=== PATIENT | male | born 1955 | race Hispanic/Latino ===

== ENCOUNTER 2016-10-07 09:05 | Day surgery (SDC) | payer OTHER ==
[2016-09-01 08:57] VITALS: BMI 41.5
[2016-10-07] MEDS ORDERED: Bupivacaine HCl 0.5% PF (10 ml) Inj ONE (11:20)
[2016-10-07] MEDS ORDERED: Ciprofloxacin 400mg/200ml D5W 400 MG/200 ML BAG IVPB ONE (11:20)
[2016-10-07] MEDS ORDERED: Lidocaine 1% Inj (20ml) ONE (11:21)
[2016-10-07] MEDS ORDERED: Midazolam 2 MG/2 ML VIAL ONE (11:53)
[2016-10-07] MEDS ORDERED: Propofol 10 mg/ml Inj (20 ML) ONE (11:53)
[2016-10-07] MEDS ORDERED: Lactated Ringer's 1,000 ML IV ONE (12:05)
--- NOTE | 2016-10-07 13:36 | PCM.SURG1 ---
Surgeon's Initial Post Op Note - Surgeon's Notes Surgeon: Dr. Farley Counselling Psychologist: Dr. Call PGY-1, Dr. Kirk PGY-2 Type of Anesthesia: IV Sedation, Local Anesthesia Administered By: Dr. Lowe/Compa Pre-Operative Diagnosis: painful hardware in left foot and ankle Operative Findings: see operative report. 4-0 prolene. 10cc 0.5% Marcaine plain. 19cc 1:1 mix 1% Lidocaine plain and 0.5% Marcaine plain Post-Operative Diagnosis: same as pre-op Operation Performed: removal of painful hardware from left foot and ankle Specimen/Specimens Removed: 2 screws removed Estimated Blood Loss: EBL {In ML}: 10 Blood Products Given: N/A Drains Used: No Drains Post-Op Condition: Good Date of Surgery/Procedure: 10/07/16 Time of Surgery/Procedure: 12:00
[2016-10-07] MEDS ORDERED: Oxycodone/Acetaminophen 5/325 mg Tab PO PRN ×2 (13:37)
[2016-10-07] MEDS ORDERED: HYDROmorphone 0.5 mg/0.5 ml ISec IVP PRN (13:40)
[2016-10-07 14:50] VITALS: BP 133/70; PULSE 65; RESP 18; TEMP 97.8; O2SAT 98
--- NOTE | 2016-10-07 15:45 | PCM.OP ---
Operative Report - Operative Report Date of Surgery/Procedure: 10/07/16 Time of Surgery/Procedure: 12:00 Surgeon: RASHAD LeungM Public Area Supervisor: Dr. Sheri Call PGY-1, Dr. Kady Kirk PGY-2 Anesthesia/Sedation: IV sedation + local Pre-Operative Diagnosis: painful hardware in left foot and ankle Post-Operative Diagnosis: painful hardware in left foot and ankle Indication for Surgery: The patient is a 61 year old male with the above diagnoses. The patient has exhausted all conservative treatment at this time and now requests surgical intervention. The patient signed the consent after careful explanation of risks, benefits, complication and alternatives for surgical procedure. No guarantees were given nor implied. NPO status was confirmed prior to taking the patient into the OR. Operative Findings: see operative report. I: 19cc 1:1 mix of 1% Lidocaine plain and 0.5% Marcaine plain pre-op block,. 10cc 0.5% Marcaine plain post-op block. M: two Biomet screws removed from patient Procedure/Operation Description: Procedure: left foot and ankle removal of painful hardware. . Indications: The patient is a 61 year old male with the above diagnoses. The patient has exhausted all conservative treatment at this time and now requests surgical intervention. The patient signed the consent after careful explanation of risks, benefits, complication and alternatives for surgical procedure. No guarantees were given nor implied. NPO status was confirmed prior to taking the patient into the OR. . Preparation: The patient was brought in to the operating room and placed on the operating room table in a supine position. Timeout was performed for identification of the correct patient and procedure. After induction of IV sedation, a local block was performed consisting of 19 mL of a 1:1 mixture of 1% lidocaine plain and 0.5% marcaine plain. The left foot was then prepped and draped in normal sterile manner. Attention was then directed to the left medial ankle where a prominent painful screw was present. An approximately 2.5 cm longitudinal incision was made with a number 15 blade. The incision was deepened through the subcutaneous tissues using sharp and blunt dissection all the way down to bone. Care was taken to identify and retract all vital neurovascular structures. The Biomet T- 1 double lead cortical screw was then visualized through the incision. Using a freer elevator, the soft tissue was dissected from the hardware and the screw was removed from the ankle. The wound was then flushed with copious amount of sterile normal saline solution. Attention was then directed to the proximal anterior aspect of the tibia. The C-arm was used to visualize and map the location of the painful hardware. An approximately 4 cm longitudinal incision was made with a number 15 blade. The incision was deepened through the subcutaneous tissues using sharp and blunt dissection all the way down to bone. Care was taken to identify and retract all vital neurovascular structures. The Biomet T-1 double lead cortical screw was then visualized through the incision. Using a screwdriver and a freer elevator, the screw was then removed from the ankle. The wound was then flushed with copious amount of sterile normal saline solution. The skin overlying both surgical incision sites was then reapproximated and coapted utilizing #4-0 prolene with simple sutures. A postoperative block of 10 cc of 0.5% marcaine plain was given in a local block type fashion around the two surgical incision sites. The incision sites were then dressed with adaptic, DSD and an RADHA bandage. The attending was present the entire case. Estimated Blood Loss: 10cc Blood Replaced: none Drains: none Complications: none Discharge & Condition: The patient tolerated the anesthesia and procedure well and was escorted to the recovery room with vital signs stable and neurovascular status intact to the left foot. This patient will be full weightbearing in a surgical shoe and follow up with Dr. Fritz.
== END 2016-10-07 15:15 | disposition home or self-care (01) ==
LOC: C.SDS 09:05
PROVIDERS: ATTEND Podiatrist Foot & Ankle Surgery
DX: T84.84XA Pain due to internal orthopedic prosthetic devices, implants and grafts, initial encounter (principal); M25.572 Pain in left ankle and joints of left foot; J45.909 Unspecified asthma, uncomplicated; G47.33 Obstructive sleep apnea (adult) (pediatric); M19.90 Unspecified osteoarthritis, unspecified site; I89.0 Lymphedema, not elsewhere classified; K29.70 Gastritis, unspecified, without bleeding; Z98.890 Other specified postprocedural states; Z90.49 Acquired absence of other specified parts of digestive tract; Z79.899 Other long term (current) drug therapy; Z88.3 Allergy status to other anti-infective agents; Z88.0 Allergy status to penicillin; Z88.7 Allergy status to serum and vaccine; Z91.018 Allergy to other foods; Y83.1 Surgical operation with implant of artificial internal device as the cause of abnormal reaction of the patient, or of later complication, without mention of misadventure at the time of the procedure

== ENCOUNTER 2016-10-12 06:43 | Day surgery (SDC) | payer OTHER ==
[2016-09-01 08:57] VITALS: BMI 41.5
[~2016-10-12 06:43] MED LIST: Ciprofloxacin 0.3% OPTH SOLN OD SCH; Cyclopentolate 1% Opth (2 ml) OD SCH; Flurbiprofen 0.03% Opht SOLN OD SCH; Lactated Ringer's 500 ML IV ONE; Phenylephrine 2.5% Opht Soln OD SCH; Tropicamide 1% Opht SOLUTION OD SCH
[2016-10-12] MEDS ORDERED: Carbachol 0.01% IO ONE (07:20)
[2016-10-12] MEDS ORDERED: Lactated Ringer's 500 ML IV ONE (07:49)
[2016-10-12] MEDS ORDERED: Midazolam 2 MG/2 ML VIAL ONE (07:55)
[2016-10-12] MEDS: Chondroitin/Hyaluronate Opth Syringe KIT (0.55 ml-0.5 ml) IO ONE ×3 (07:55→08:25)
[2016-10-12] MEDS ORDERED: Propofol 10 mg/ml Inj (20 ML) ONE (07:55)
[2016-10-12] MEDS: Lidocaine 2% Inj (20ml) ONE ×3 (07:56→08:10)
[2016-10-12] MEDS: Hyaluronidase Human, Recombi 150 U/ML VIAL ONE ×3 (07:56→08:10)
[2016-10-12] MEDS: Povidone Iodine Ophthalmic 5% Soln ONE ×3 (07:57→08:05)
[2016-10-12] MEDS: Tetracaine 0.5% Ophth (OR ONLY) ONE ×3 (07:58→08:05)
[2016-10-12] MEDS: Tobramycin/Dexamethasone OPHT OINT ONE ×5 (07:59→08:57)
[2016-10-12 10:05] VITALS: BP 126/52; PULSE 76; RESP 20; TEMP 97.7; O2SAT 95
--- NOTE | 2016-10-13 13:26 | OP ---
PROCEDURE DATE: 10/12/2016 PREOPERATIVE DIAGNOSIS: Visually significant cataract, right eye. POSTOPERATIVE DIAGNOSIS: Visually significant cataract, right eye. PROCEDURE: Cataract extraction with intraocular lens implant, right eye. LENS IMPLANTED: [id number], 23 diopter. TYPE OF ANESTHESIA: Monitored anesthesia care and retrobulbar injection. DESCRIPTION OF PROCEDURE: The patient was premedicated and brought to the operating room and placed on the operating room table in the supine position. Topical tetracaine was instilled. After adequate anesthesia, a retrobulbar injection with 2% Xylocaine with 0.75% Marcaine was given. The eye was then prepped and draped in the usual sterile ophthalmic fashion and a lid speculum was inserted and the microscope was positioned. A temporal paracentesis was created followed by injection of intracameral shugarcaine. Viscoat was then injected into the anterior chamber. The temporal biplanar clear corneal incision was then created, next a complete curvilinear capsulorrhexis was created with an Utrata forceps. Balanced salt solution, hydrodissection was then performed. The lens was phacoemulsified. Residual cortical material was removed by manual irrigation and aspiration. Viscoelastic was then injected into the capsular bag and intraocular lens model and power as noted, was injected into the capsular into plane and viscoelastic was then used removed using irrigation and aspiration. The wounds were hydrated and there was noted to be no leakage. The eyelid speculum was removed. Topical antibiotics and steroid drops and ointment were placed onto the eye. The eye was patched and shielded and the patient was wheeled to the recovery room in stable condition. Zuhair Caba MD
--- NOTE | 2016-10-13 15:08 | OP ---
DATE OF PROCEDURE: 10/12/2016 PROCEDURE: Cataract extraction with intraocular lens implant of the right eye. ANESTHESIA: Retrobulbar and monitored anesthesia care. PREOPERATIVE DIAGNOSIS: Visually significant cataract, right eye. POSTOPERATIVE DIAGNOSIS: Visually significant cataract, right eye. LENS IMPLANT: SN60WF *------*diopter. COMPLICATIONS: None. PROCEDURE IN DETAIL: Mr. Marsh was pre-medicated and brought to the operating room, and placed on the operating table in the supine position. Topical tetracaine was instilled. After adequate anesthesia, a retrobulbar injection of 2% Xylocaine and 0.75% Marcaine was given to the right eye. The eye was then prepped and draped in the usual sterile ophthalmic fashion. A lid speculum was inserted and microscope was positioned. A temporal paracentesis was created followed by injection of intracameral Shugarcaine. The scope was then inserted into the anterior chamber. A temporal biplanar clear corneal incision was then created next. A complete curvilinear capsulorrhexis was created with intraoperative forceps. Balanced salt solution and hydrodissection were then performed. The lens was phacoemulsified with residual cortical materials driven through the irrigation and aspiration. Viscoelastic was injected into the capsular bag and an intraocular lens, model and power, as noted was injected into the capsular bag and rotated into place. The viscoelastic was then removed using irrigation and aspiration. The wounds were hydrated. There was noticed to be no leakage. The lid speculum was removed. Topical antibiotics and sterile eyedrops were placed onto the eye. Antibiotics and sterile ointment were placed onto the eye, and the eye was patched and shielded. Mr. Marsh was wheeled to the recovery room in stable condition. Zuhair Caba MD
== END 2016-10-12 10:05 | disposition home or self-care (01) ==
LOC: C.SDS 06:43
PROVIDERS: ATTEND Ophthalmology
DX: H26.9 Unspecified cataract (principal)
CPT/HCPCS: 66984; J2250; J2704; J3010; J3470; J7120; V2632

== ENCOUNTER 2017-08-23 07:11 | Observation (INO) | payer OTHER ==
[2017-08-23 07:12] VITALS: BMI 41.5
[2017-08-23] MEDS ORDERED: Sodium Chloride 0.9% 1,000 ML IV ONE (07:35)
[2017-08-23] MEDS ORDERED: Sodium Chloride 0.9% 1,000 ML ONE (07:46)
[2017-08-23 07:51] LABS: BASO # 0.1 K/uL (0.0-0.2); BASO % 0.9 % (0.0-2.0); EOS # 0.2 K/uL (0.0-0.7); EOS % 2.6 % (0.0-4.0); HEMOGLOBIN 12.8 g/dL (12.0-18.0); LYMPH # 1.6 K/uL (1.0-4.3); LYMPH % 21.5 % (20.0-40.0); MEAN CELL VOLUME 84.5 fL (80.0-94.0); MEAN CORPUSCULAR HEMOGLOBIN 29.1 pg (27.0-31.0); MEAN CORPUSCULAR HGB CONC 34.4 g/dL (33.0-37.0); MEAN PLATELET VOLUME 8.1 fL (7.2-11.7); MONO # 0.5 K/uL (0.0-0.8); MONO % 6.8 % (0.0-10.0); NEUT % 68.2 % (50.0-75.0); NRBC % 0.1 % (0.0-2.0); RBC 4.41 Mil/uL (4.40-5.90); RED CELL DISTRIBUTION WIDTH 16.1 % (11.5-14.5); WHITE BLOOD COUNT 7.3 K/uL (4.8-10.8)
--- NOTE | 2017-08-23 08:00 | RAD ---
PROCEDURE: CHEST RADIOGRAPH, 1 VIEW HISTORY: SOB COMPARISON: 10/04/2016 FINDINGS: LUNGS: No consolidation. Mild pulmonary venous congestion slightly increased since prior exam PLEURA: No pneumothorax or pleural fluid seen. CARDIOVASCULAR: Cardiomegaly -similar OSSEOUS STRUCTURES: Mild bilateral shoulder arthrosis. VISUALIZED UPPER ABDOMEN: Normal. OTHER FINDINGS: Large body habitus IMPRESSION: Cardiomegaly. Mild pulmonary venous congestion -slightly increased since prior exam
--- NOTE | 2017-08-23 08:09 | CT ---
PROCEDURE: CT HEAD WITHOUT CONTRAST. HISTORY: dizziness COMPARISON: 07/24/2012 TECHNIQUE: Axial computed tomography images were obtained through the head/brain without intravenous contrast. Radiation dose: Total exam DLP = 929 mGy-cm. This CT exam was performed using one or more of the following dose reduction techniques: Automated exposure control, adjustment of the mA and/or kV according to patient size, and/or use of iterative reconstruction technique. FINDINGS: HEMORRHAGE: No intracranial hemorrhage. BRAIN: No mass effect or edema. There is asymmetrical prominence of the left CSF space over the left temporal lobe with mild ipsilateral ex vacuo changes of the left lateral ventricle. 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 No interval additional changes noted VENTRICLES: Unremarkable. No hydrocephalus. CALVARIUM: Unremarkable. PARANASAL SINUSES: Unremarkable as visualized. No significant inflammatory changes. MASTOID AIR CELLS: Unremarkable as visualized. No inflammatory changes. OTHER FINDINGS: Supraclinoid internal carotid artery to areal vascular calcifications renoted. IMPRESSION: No interval intracranial hemorrhage or mass effect. Left temporal lobe bold infarct encephalomalacia changes -similar to 2013
[2017-08-23 08:16] LABS: B-TYPE NATRIURETIC PEPTIDE 75.2 pg/mL (0-900)
[2017-08-23 08:19] LABS: ALB/GLOB RATIO 1.2 (1.0-2.1); ALBUMIN 3.7 g/dL (3.5-5.0); ALT/SGPT 26 U/L (21-72); AST/SGOT 27 U/L (17-59); BLOOD UREA NITROGEN 18 mg/dL (9-20); CALCIUM 9.1 mg/dl (8.6-10.4); GFR AFRICAN-AMERICAN > 60; GFR NON-AFRICAN AMERICAN > 60
--- NOTE | 2017-08-23 08:30 | C.PDOC ---
History Of Present Illness 61 y/o male presents to the ER complaining of a sudden onset of dizziness which occurred [employer]. Patient states that the dizziness is worse with movement. Patient denies having headache, CP, SOB, nausea, vomiting, and abdominal pain. Time Seen by Provider: 08/23/17 07:17 Chief Complaint (Nursing): Dizziness/Lightheaded History Per: Patient History/Exam Limitations: no limitations Onset/Duration Of Symptoms: Hrs Current Symptoms Are (Timing): Still Present Severity: Moderate Past Medical History Reviewed: Historical Data, Nursing Documentation, Vital Signs Vital Signs: Last Vital Signs Temp 97.7 F 08/23/17 07:16 Pulse 65 08/23/17 10:14 Resp 12 08/23/17 10:14 BP 123/66 08/23/17 10:14 Pulse Ox 97 08/23/17 10:14 - Medical History PMH: Arthritis, Asthma, Fractures (NASAL LEFT HAND/LEFT ANKLE), Gastritis, Sleep Apnea Denies: Chronic Kidney Disease Surgical History: Appendectomy - [facility] Procedures AMPUTATION STUMP RASHARD (11/20/12) ANKLE FUSION (05/02/14) CENTRAL VENOUS CATHETER PLACEMENT WITH GUIDANCE (10/23/12) INJECT ANTIBIOTIC (05/04/14) LOC EXC LES METATAR/TAR (11/20/12) MUSC/TEND LNG CHANGE NEC (05/02/14) OCCUPATIONAL THERAPY (05/04/14) PHYSICAL THERAPY NEC (05/04/14) RECREATIONAL THERAPY (05/04/14) REMOVE INT FIX DEVIC NEC (08/20/14) TENDON TRNSFR/TRANSPLANT (11/20/12) Family History: States: No Known Family Hx - Social History Hx Tobacco Use: No Hx Alcohol Use: Yes Hx Substance Use: No - Immunization History Hx Tetanus Toxoid Vaccination: No Hx Influenza Vaccination: Yes Hx Pneumococcal Vaccination: Yes Review Of Systems Except As Marked, All Systems Reviewed And Found Negative. Constitutional: Negative for: Fever, Chills Gastrointestinal: Negative for: Nausea, Vomiting, Abdominal Pain Neurological: Positive for: Dizziness. Negative for: Headache Physical Exam - Physical Exam Appears: Non-toxic, No Acute Distress Skin: Normal Color, Warm, Dry Head: Atraumatic, Normacephalic Eye(s): bilateral: Normal Inspection Nose: Normal Oral Mucosa: Moist Neck: Supple Chest: Symmetrical Cardiovascular: Rhythm Regular Respiratory: Normal Breath Sounds, No Rales, No Rhonchi, No Wheezing Gastrointestinal/Abdominal: Normal Exam, Soft, No Tenderness Neurological/Psych: Oriented x3, Normal Speech ED Course And Treatment - Laboratory Results Result Diagrams: 08/23/17 07:42 08/23/17 07:42 ECG: Interpreted By Me, Viewed By Me ECG Rhythm: Sinus Rhythm ECG Interpretation: Normal Interpretation Of ECG: NSR with normal intervals, normal axises, and no ST/ T wave abnormalities Rate From EC O2 Sat by Pulse Oximetry: 98 (RA) Pulse Ox Interpretation: Normal - Other Rad CXR X-Ray: Viewed By Me, Read By Radiologist Interpretation: PROCEDURE: CHEST RADIOGRAPH, 1 VIEW. HISTORY: SOB. COMPARISON: 10/04/2016. FINDINGS: LUNGS: No consolidation. Mild pulmonary venous congestion slightly increased since prior exam. PLEURA: No pneumothorax or pleural fluid seen. CARDIOVASCULAR: Cardiomegaly -similar. OSSEOUS STRUCTURES: Mild bilateral shoulder arthrosis. VISUALIZED UPPER ABDOMEN: Normal. OTHER FINDINGS: Large body habitus. IMPRESSION: Cardiomegaly. Mild pulmonary venous congestion -slightly increased since prior exam Medical Decision Making Medical Decision Making: Assessment: Dizziness/ Syncope Plan: --Labs --UA --CXR --CT - Head --Antivert PO --IV Fluids --Sudafed PO Disposition Discussed With Dr.: Dion Santana Doctor Will See Patient In The: Hospital Counseled Patient/Family Regarding: Studies Performed, Diagnosis - Disposition Disposition: HOSPITALIZED Disposition Time: 10:48 Condition: FAIR Forms: [facility] (Slovak) - Clinical Impression Clinical Impression: Dizziness, Near syncope - Scribe Statement The provider has reviewed the documentation as recorded by the Papa Orosco Provider Attestation: All medical record entries made by the Papa were at my direction and personally dictated by me. I have reviewed the chart and agree that the record accurately reflects my personal performance of the history, physical exam, medical decision making, and the department course for this patient. I have also personally directed, reviewed, and agree with the discharge instructions and disposition.
[2017-08-23 09:07] LABS: URINE BILIRUBIN NEGATIVE (NEGATIVE); URINE BLOOD NEGATIVE (NEGATIVE); URINE CLARITY Clear (Clear); URINE COLOR Straw (YELLOW); URINE GLUCOSE (UA) NORMAL (Normal); URINE LEUKOCYTE ESTERASE NEG Leu/uL (Negative); URINE PROTEIN NEGATIVE (NEGATIVE); URINE UROBILINOGEN NORMAL mg/dL (0.2-1.0)
--- NOTE | 2017-08-23 17:07 | CP.PCM.CON ---
History of Present Illness - History of Present Illness History of Present Illness: admitted with dizziness while at work, had upset stomach x 2days with diarrhea at home h/o asthma stable on singular, advair Review of Systems - Review of Systems All systems: reviewed and no additional remarkable complaints except - Gastrointestinal Gastrointestinal: Change in Bowel Habits - Neurological Neurological: Dizziness Past Patient History - Past Medical History & Family History Past Medical History?: Yes - Past Social History Smoking Status: Former Smoker - CARDIAC Hx Cardiac Disorders: No Hx Circulatory Problems: Yes (LYMPHADEMA LEFT LEG) - PULMONARY Hx Asthma: Yes Hx Sleep Apnea: Yes - NEUROLOGICAL Hx Neurological Disorder: No - HEENT Hx HEENT Problems: Yes Hx Cataracts: Yes - RENAL Hx Chronic Kidney Disease: No - ENDOCRINE/METABOLIC Hx Endocrine Disorders: No - HEMATOLOGICAL/ONCOLOGICAL Hx Blood Disorders: No - INTEGUMENTARY Hx Dermatological Problems: Yes (FOOT ULCER) - MUSCULOSKELETAL/RHEUMATOLOGICAL Hx Arthritis: Yes Hx Fractures: Yes (NASAL LEFT HAND/LEFT ANKLE) - GASTROINTESTINAL Hx Gastritis: Yes - GENITOURINARY/GYNECOLOGICAL Hx Genitourinary Disorders: No - PSYCHIATRIC Hx Substance Use: No - SURGICAL HISTORY Hx Appendectomy: Yes - ANESTHESIA Hx Anesthesia: Yes Hx Anesthesia Reactions: No Hx Malignant Hyperthermia: No Meds Allergies/Adverse Reactions: Allergies Allergy/AdvReac Type Severity Reaction Status Date / Time clindamycin Allergy Intermediate REDNESS Verified 06/22/16 15:45 coconut Allergy Intermediate SWELLING Verified 10/04/16 08:20 coconut oil Allergy Intermediate SWELLING Verified 06/22/16 15:46 penicillin G Allergy Intermediate RASH Verified 06/22/16 15:47 tetanus and diphtheria Allergy Intermediate RASH Verified 06/22/16 15:48 toxoids tetanus toxoid, adsorbed Allergy Intermediate RASH Verified 06/22/16 15:47 - Medications Medications: Current Medications Enoxaparin Sodium (Lovenox) 40 mg SC DAILY [facility] Sodium Chloride (Sodium Chloride 0.9%) 1,000 mls @ 100 mls/hr IV .Q10H ONE Stop: 08/23/17 17:34 Last Admin: 08/23/17 07:48 Dose: 100 mls/hr Pseudoephedrine HCl (Sudafed Tab) 30 mg PO Q6 CARMELINA Last Admin: 08/23/17 07:48 Dose: 30 mg Physical Exam - Constitutional Appears: No Acute Distress - Head Exam Head Exam: ATRAUMATIC, NORMOCEPHALIC - Eye Exam Eye Exam: Normal appearance Pupil Exam: PERRL - ENT Exam ENT Exam: Mucous Membranes Moist - Neck Exam Neck exam: Positive for: Normal Inspection - Respiratory Exam Respiratory Exam: Decreased Breath Sounds - Cardiovascular Exam Cardiovascular Exam: REGULAR RHYTHM, +S1, +S2 - GI/Abdominal Exam GI & Abdominal Exam: Normal Bowel Sounds, Soft - Rectal Exam Rectal Exam: Deferred - Neurological Exam Neurological exam: Alert, Oriented x3 - Psychiatric Exam Psychiatric exam: Normal Affect, Normal Mood - Skin Skin Exam: Intact Results - Vital Signs Recent Vital Signs: Last Vital Signs Temp 97.9 F 08/23/17 14:40 Pulse 68 08/23/17 14:40 Resp 84 H 08/23/17 14:40 BP 163/84 H 08/23/17 14:40 Pulse Ox 98 08/23/17 14:40 - Labs Result Diagrams: 08/23/17 07:42 08/23/17 07:42 Labs: Laboratory Results - last 24 hr 08/23/17 08/23/17 08/23/17 07:23 07:42 07:42 WBC 7.3 RBC 4.41 Hgb 12.8 Hct 37.3 MCV 84.5 MCH 29.1 MCHC 34.4 RDW 16.1 H Plt Count 238 MPV 8.1 Neut % (Auto) 68.2 Lymph % (Auto) 21.5 Taylor % (Auto) 6.8 Eos % (Auto) 2.6 Baso % (Auto) 0.9 Neut # (Auto) 5.0 Lymph # (Auto) 1.6 Taylor # (Auto) 0.5 Eos # (Auto) 0.2 Baso # (Auto) 0.1 Sodium 140 Potassium 4.1 Chloride 105 Carbon Dioxide 24 Anion Gap 15 BUN 18 Creatinine 0.7 L Est GFR ( Amer) > 60 Est GFR (Non-Af Amer) > 60 POC Glucose (mg/dL) 80 Random Glucose 111 H Calcium 9.1 Total Bilirubin 0.6 AST 27 ALT 26 Alkaline Phosphatase 113 Troponin I < 0.0120 NT-Pro-B Natriuret Pep 75.2 Total Protein 6.8 Albumin 3.7 Globulin 3.1 Albumin/Globulin Ratio 1.2 Urine Color Urine Clarity Urine pH Ur Specific [place] Urine Protein Urine Glucose (UA) Urine Ketones Urine Blood Urine Nitrate Urine Bilirubin Urine Urobilinogen Ur Leukocyte Esterase Urine RBC (Auto) 08/23/17 08:41 WBC RBC Hgb Hct MCV MCH MCHC RDW Plt Count MPV Neut % (Auto) Lymph % (Auto) Taylor % (Auto) Eos % (Auto) Baso % (Auto) Neut # (Auto) Lymph # (Auto) Taylor # (Auto) Eos # (Auto) Baso # (Auto) Sodium Potassium Chloride Carbon Dioxide Anion Gap BUN Creatinine Est GFR ( Amer) Est GFR (Non-Af Amer) POC Glucose (mg/dL) Random Glucose Calcium Total Bilirubin AST ALT Alkaline Phosphatase Troponin I NT-Pro-B Natriuret Pep Total Protein Albumin Globulin Albumin/Globulin Ratio Urine Color Straw Urine Clarity Clear Urine pH 7.0 Ur Specific [place] 1.008 Urine Protein Negative Urine Glucose (UA) Normal Urine Ketones Negative Urine Blood Negative Urine Nitrate Negative Urine Bilirubin Negative Urine Urobilinogen Normal Ur Leukocyte Esterase Neg Urine RBC (Auto) < 1 Assessment & Plan (1) Dizziness Status: Acute Comment: work up ongoing, ct head nothing acute, carotids pending (2) Asthma with COPD Status: Chronic Comment: advair 250, singular (3) S/P ankle fusion Status: Chronic
[2017-08-23 17:37] LABS: CK-MB 2.74 ng/mL (0.0-3.38)
[2017-08-23] MEDS ORDERED: Fluticasone-Salmeterol 250-50mcg Diskus INH SCH (20:00)
--- NOTE | 2017-08-23 20:47 | CP.PCM.HP ---
History of Present Illness - History of Present Illness History of Present Illness: Chief complaint: Feeling dizzy HPI: 61-year-old male with a history of bronchial asthma, chronic leg edema of the left leg, history of concussion in the past. Patient brought into the emergency room because he was not able to stand up and walk today while he was in the parking lot. He was also having symptoms of diarrhea for 3 days, and associated with 2 episodes of vomiting 2 days ago. Patient was not clear what attributed this. Yesterday he was not eating much, he was not drinking enough. He was continued to have a diarrheal episode, just watery stools up to 3 times. 1-2 episodes of vomiting. Today in the emergency room he was evaluated for dizziness, he did not lose any consciousness. But he felt like his knee giving away or he was standing up and trying to stand up. He was also feeling dizzy. In the emergency room he was also having some disorientation as per the patient' s most likely after the Antivert. But patient is now feeling much better after receiving IV fluids. He has no chest pain now. He denies any nausea vomiting headache or other systemic symptoms. No palpitation no dizziness Past medical history: History of bronchial asthma, gastroesophageal reflux disease, sleep apnea and obesity, chronic leg edema on the left side. Allergies multiple allergies including clindamycin coconut and penicillin Personal history he used to be a smoker in the past quit a few years ago. Socially drinks alcohol. Family history significant for heart disease and carotid. Surgical history multiple surgeries to the left leg. Review of system: Patient is having no headache, he denies any visual symptoms. Patient in the past is seen by neurologist many years ago for the concussion of the brain. He did not have any residual weakness. He denies any chest pain or shortness of breath, using CPAP for obstructive sleep apnea No abdominal pain, episodes of diarrhea, currently better. No recent antibiotic use Denies any vomiting now, but to 2 episodes of vomiting in the past noted. Patient's home medications reviewed On examination: Currently patient is sitting up, not in any distress. Chest good air entry Regular heart sound Nontender abdomen. 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 Assessment and recommendation: 61-year-old male with a history of chronic leg edema, history of bronchial asthma sinusitis, history of obstructive sleep apnea Admitted to the hospital with acute dizzy episode. Syncopal attack. Likely dehydration. But clinically improving with the fluid. Unlikely seizure activities, patient did not lose any consciousness, but mild disorientation noted. CT scan reveals old stroke like her encephalomalacia. We will get a carotid Doppler, echocardiogram, labs. Spoke to the patient and in detail. Patient in the past has been seen by neurologist, may be needing outpatient illogical evaluation. Will follow the patient Present on Admission - Present on Admission Any Indicators Present on Admission: No History of DVT/PE: No History of Uncontrolled Diabetes: No Urinary Catheter: No Decubitus Ulcer Present: No Past Patient History - Past Medical History & Family History Past Medical History?: Yes - Past Social History Smoking Status: Former Smoker - CARDIAC Hx Cardiac Disorders: No Hx Circulatory Problems: Yes (LYMPHADEMA LEFT LEG) - PULMONARY Hx Asthma: Yes Hx Sleep Apnea: Yes - NEUROLOGICAL Hx Neurological Disorder: No - HEENT Hx HEENT Problems: Yes Hx Cataracts: Yes - RENAL Hx Chronic Kidney Disease: No - ENDOCRINE/METABOLIC Hx Endocrine Disorders: No - HEMATOLOGICAL/ONCOLOGICAL Hx Blood Disorders: No - INTEGUMENTARY Hx Dermatological Problems: Yes (FOOT ULCER) - MUSCULOSKELETAL/RHEUMATOLOGICAL Hx Arthritis: Yes Hx Fractures: Yes (NASAL LEFT HAND/LEFT ANKLE) - GASTROINTESTINAL Hx Gastritis: Yes - GENITOURINARY/GYNECOLOGICAL Hx Genitourinary Disorders: No - PSYCHIATRIC Hx Substance Use: No - SURGICAL HISTORY Hx Appendectomy: Yes - ANESTHESIA Hx Anesthesia: Yes Hx Anesthesia Reactions: No Hx Malignant Hyperthermia: No Meds Allergies/Adverse Reactions: Allergies Allergy/AdvReac Type Severity Reaction Status Date / Time clindamycin Allergy Intermediate REDNESS Verified 06/22/16 15:45 coconut Allergy Intermediate SWELLING Verified 10/04/16 08:20 coconut oil Allergy Intermediate SWELLING Verified 06/22/16 15:46 penicillin G Allergy Intermediate RASH Verified 06/22/16 15:47 tetanus and diphtheria Allergy Intermediate RASH Verified 06/22/16 15:48 toxoids tetanus toxoid, adsorbed Allergy Intermediate RASH Verified 06/22/16 15:47 Results - Vital Signs Recent Vital Signs: Last Vital Signs Temp 97.9 F 08/23/17 14:40 Pulse 68 08/23/17 14:40 Resp 84 H 08/23/17 14:40 BP 163/84 H 08/23/17 14:40 Pulse Ox 98 08/23/17 14:40 - Labs Result Diagrams: 08/23/17 07:42 08/23/17 07:42 Labs: Laboratory Results - last 24 hr 08/23/17 08/23/17 08/23/17 07:23 07:42 07:42 WBC 7.3 RBC 4.41 Hgb 12.8 Hct 37.3 MCV 84.5 MCH 29.1 MCHC 34.4 RDW 16.1 H Plt Count 238 MPV 8.1 Neut % (Auto) 68.2 Lymph % (Auto) 21.5 Coke % (Auto) 6.8 Eos % (Auto) 2.6 Baso % (Auto) 0.9 Neut # (Auto) 5.0 Lymph # (Auto) 1.6 [place] # (Auto) 0.5 Eos # (Auto) 0.2 Baso # (Auto) 0.1 Sodium 140 Potassium 4.1 Chloride 105 Carbon Dioxide 24 Anion Gap 15 BUN 18 Creatinine 0.7 L Est GFR ( Amer) > 60 Est GFR (Non-Af Amer) > 60 POC Glucose (mg/dL) 80 Random Glucose 111 H Calcium 9.1 Total Bilirubin 0.6 AST 27 ALT 26 Alkaline Phosphatase 113 Total Creatine Kinase CK-MB (Mass) Troponin I < 0.0120 NT-Pro-B Natriuret Pep 75.2 Total Protein 6.8 Albumin 3.7 Globulin 3.1 Albumin/Globulin Ratio 1.2 Urine Color Urine Clarity Urine pH Ur Specific [place] Urine Protein Urine Glucose (UA) Urine Ketones Urine Blood Urine Nitrate Urine Bilirubin Urine Urobilinogen Ur Leukocyte Esterase Urine RBC (Auto) 08/23/17 08/23/17 08:41 17:07 WBC RBC Hgb Hct MCV MCH MCHC RDW Plt Count MPV Neut % (Auto) Lymph % (Auto) [place] % (Auto) Eos % (Auto) Baso % (Auto) Neut # (Auto) Lymph # (Auto) [place] # (Auto) Eos # (Auto) Baso # (Auto) Sodium Potassium Chloride Carbon Dioxide Anion Gap BUN Creatinine Est GFR ( Amer) Est GFR (Non-Af Amer) POC Glucose (mg/dL) Random Glucose Calcium Total Bilirubin AST ALT Alkaline Phosphatase Total Creatine Kinase 116 CK-MB (Mass) 2.74 Troponin I < 0.0120 NT-Pro-B Natriuret Pep Total Protein Albumin Globulin Albumin/Globulin Ratio Urine Color Straw Urine Clarity Clear Urine pH 7.0 Ur Specific [place] 1.008 Urine Protein Negative Urine Glucose (UA) Normal Urine Ketones Negative Urine Blood Negative Urine Nitrate Negative Urine Bilirubin Negative Urine Urobilinogen Normal Ur Leukocyte Esterase Neg Urine RBC (Auto) < 1
[2017-08-24 01:02] LABS: CK-MB 2.05 ng/mL (0.0-3.38); TROPONIN I 0.013 ng/mL (0.00-0.120)
[2017-08-24 01:18] VITALS: RESP 20
[2017-08-24 07:33] VITALS: BP 134/78; TEMP 98; O2SAT 96
[2017-08-24 08:26] LABS: BASO % 0.7 % (0.0-2.0); EOS # 0.2 K/uL (0.0-0.7); EOS % 3.4 % (0.0-4.0); HEMOGLOBIN 13.5 g/dL (12.0-18.0); LYMPH # 1.5 K/uL (1.0-4.3); LYMPH % 24.3 % (20.0-40.0); MEAN CELL VOLUME 84.4 fL (80.0-94.0); MEAN CORPUSCULAR HEMOGLOBIN 29.4 pg (27.0-31.0); MEAN CORPUSCULAR HGB CONC 34.9 g/dL (33.0-37.0); MEAN PLATELET VOLUME 7.7 fL (7.2-11.7); MONO # 0.4 K/uL (0.0-0.8); NEUT % 64.6 % (50.0-75.0); RBC 4.6 Mil/uL (4.40-5.90); RED CELL DISTRIBUTION WIDTH 16.4 % (11.5-14.5); WHITE BLOOD COUNT 6.2 K/uL (4.8-10.8)
[2017-08-24 08:51] VITALS: PULSE 72
[2017-08-24 08:58] LABS: ALB/GLOB RATIO 1.1 (1.0-2.1); ALBUMIN 3.8 g/dL (3.5-5.0); ALT/SGPT 26 U/L (21-72); AST/SGOT 23 U/L (17-59); BLOOD UREA NITROGEN 17 mg/dL (9-20); CALCIUM 9.1 mg/dl (8.6-10.4); GFR AFRICAN-AMERICAN > 60; GFR NON-AFRICAN AMERICAN > 60; HDL CHOLESTEROL 35 mg/dL (30-70)
[2017-08-24 09:08] LABS: LDL CHOLESTEROL 86 mg/dL (0-129)
[2017-08-24] MEDS ORDERED: Enoxaparin 40 mg Syringe SC SCH (10:00)
--- NOTE | 2017-08-24 15:50 | VASCLAB ---
PROCEDURE: HISTORY: syncope COMPARISON: None available. TECHNIQUE: Grayscale and duplex Doppler evaluation of the cervical carotid and vertebral arteries were performed. The common carotid, carotid bifurcations and cervical Internal Carotid Artery (ICA) and proximal External Carotid Artery (ECA) were evaluated. The vertebral arteries were evaluated for gross patency and flow direction. Report prepared by FLAVIO Aguiar FINDINGS: RIGHT CAROTID ARTERIES: 1. Common Carotid Artery: No significant focal plaque formation of the right common carotid artery. Maximum Peak Systolic velocity: 102 cm/sec: End-diastolic velocity 21 cm/sec. 2. Carotid Bifurcation: plaque formation. Maximum Peak Systolic velocity: 63 cm/sec: End-diastolic velocity 17 cm/sec. 3. Internal Carotid Artery: Plaque description: 3.1. Proximal Segment: Peak systolic velocity 98 cm/sec: End-diastolic velocity 25 cm/sec - % stenosis 0-15% 3.2. Middle Segment: Peak systolic velocity 96 cm/sec: End-diastolic velocity 33 cm/sec - % stenosis 0-15% 3.3. Distal Segment: Peak systolic velocity 82 cm/sec: End-diastolic velocity 31 cm/sec - % stenosis 0-15% 4. External Carotid Artery: No significant focal plaque formation. Peak systolic velocity 139 cm/sec 5. ICA/CCA Ratio: 1.0 LEFT CAROTID ARTERIES: 1. Common Carotid Artery: No significant focal plaque formation of the left common carotid artery. Maximum Peak Systolic velocity: 107 cm/sec: End-diastolic velocity 21 cm/sec. 2. Carotid Bifurcation: plaque formation. Maximum Peak Systolic velocity: 79 cm/sec: End-diastolic velocity 16 cm/sec. 3. Internal Carotid Artery: Plaque description: 3.1. Proximal Segment: Peak systolic velocity 71 cm/sec: End-diastolic velocity 24 cm/sec - % stenosis 0-15% 3.2. Middle Segment: Peak systolic velocity 61 cm/sec: End-diastolic velocity 16 cm/sec - % stenosis 0-15% 3.3. Distal Segment: Peak systolic velocity 60 cm/sec: End-diastolic velocity 18 cm/sec - % stenosis 0-15% 4. External Carotid Artery: No significant focal plaque formation. Peak systolic velocity 125 cm/sec 5. ICA/CCA Ratio: 0.7 VERTEBRAL ARTERIES: 1. Right Vertebral Artery: The right vertebral artery flow direction is antegrade. 2. Left Vertebral Artery: The left vertebral artery flow direction is antegrade. OTHER FINDINGS: 1. Right Brachial Blood pressure: 140 mmHg. 2. Left Brachial Blood pressure: 135 mmHg. IMPRESSION: RIGHT: Duplex scan does not suggest hemodynamically significant stenosis of the right extracranial carotid arteries. LEFT: Duplex scan does not suggest hemodynamically significant stenosis of the left extracranial carotid arteries.
--- NOTE | 2017-08-24 23:07 | CP.PCM.DIS ---
Provider - Provider Date of Admission: 08/23/17 10:48 Attending physician: Dion Santana MD Time Spent in preparation of Discharge (in minutes): 45 Hospital Course - Lab Results Lab Results: Most Recent Lab Values WBC 6.2 K/uL (4.8-10.8) 08/24/17 08:22 RBC 4.60 Mil/uL (4.40-5.90) 08/24/17 08:22 Hgb 13.5 g/dL (12.0-18.0) 08/24/17 08:22 Hct 38.8 % (35.0-51.0) 08/24/17 08:22 MCV 84.4 fL (80.0-94.0) 08/24/17 08:22 MCH 29.4 pg (27.0-31.0) 08/24/17 08:22 MCHC 34.9 g/dL (33.0-37.0) 08/24/17 08:22 RDW 16.4 % (11.5-14.5) H 08/24/17 08:22 Plt Count 254 K/uL (130-400) 08/24/17 08:22 MPV 7.7 fL (7.2-11.7) 08/24/17 08:22 Neut % (Auto) 64.6 % (50.0-75.0) 08/24/17 08:22 Lymph % (Auto) 24.3 % (20.0-40.0) 08/24/17 08:22 [place] % (Auto) 7.0 % (0.0-10.0) 08/24/17 08:22 Eos % (Auto) 3.4 % (0.0-4.0) 08/24/17 08:22 Baso % (Auto) 0.7 % (0.0-2.0) 08/24/17 08:22 Neut # (Auto) 4.0 K/uL (1.8-7.0) 08/24/17 08:22 Lymph # (Auto) 1.5 K/uL (1.0-4.3) 08/24/17 08:22 [place] # (Auto) 0.4 K/uL (0.0-0.8) 08/24/17 08:22 Eos # (Auto) 0.2 K/uL (0.0-0.7) 08/24/17 08:22 Baso # (Auto) 0.0 K/uL (0.0-0.2) 08/24/17 08:22 Sodium 141 mmol/L (132-148) 08/24/17 08:22 Potassium 4.4 mmol/L (3.6-5.2) 08/24/17 08:22 Chloride 107 mmol/L (98-107) 08/24/17 08:22 Carbon Dioxide 25 mmol/L (22-30) 08/24/17 08:22 Anion Gap 13 (10-20) 08/24/17 08:22 BUN 17 mg/dL (9-20) 08/24/17 08:22 Creatinine 0.7 mg/dL (0.8-1.5) L 08/24/17 08:22 Est GFR ( Amer) > 60 08/24/17 08:22 Est GFR (Non-Af Amer) > 60 08/24/17 08:22 POC Glucose (mg/dL) 80 mg/dL (65-110) 08/23/17 07:23 Random Glucose 105 mg/dL (75-110) 08/24/17 08:22 Hemoglobin A1c 5.8 % (4.2-6.5) 08/24/17 08:22 Calcium 9.1 mg/dl (8.6-10.4) 08/24/17 08:22 Total Bilirubin 0.8 mg/dL (0.2-1.3) 08/24/17 08:22 AST 23 U/L (17-59) 08/24/17 08:22 ALT 26 U/L (21-72) 08/24/17 08:22 Alkaline Phosphatase 110 U/L (38-126) 08/24/17 08:22 Total Creatine Kinase 70 U/L (55-170) 08/24/17 00:28 CK-MB (Mass) 2.05 ng/mL (0.0-3.38) 08/24/17 00:28 Troponin I 0.0130 ng/mL (0.00-0.120) 08/24/17 00:28 NT-Pro-B Natriuret Pep 75.2 pg/mL (0-900) 08/23/17 07:42 Total Protein 7.2 g/dL (6.3-8.3) 08/24/17 08:22 Albumin 3.8 g/dL (3.5-5.0) 08/24/17 08:22 Globulin 3.4 gm/dL (2.2-3.9) 08/24/17 08:22 Albumin/Globulin Ratio 1.1 (1.0-2.1) 08/24/17 08:22 Triglycerides 94 mg/dL (0-149) D 08/24/17 08:22 Cholesterol 145 mg/dL (0-199) 08/24/17 08:22 LDL Cholesterol Direct 86 mg/dL (0-129) 08/24/17 08:22 HDL Cholesterol 35 mg/dL (30-70) 08/24/17 08:22 Urine Color Straw (YELLOW) 08/23/17 08:41 Urine Clarity Clear (Clear) 08/23/17 08:41 Urine pH 7.0 (5.0-8.0) 08/23/17 08:41 Ur Specific [place] 1.008 (1.003-1.030) 08/23/17 08:41 Urine Protein Negative mg/dL (NEGATIVE) 08/23/17 08:41 Urine Glucose (UA) Normal mg/dL (Normal) 08/23/17 08:41 Urine Ketones Negative mg/dL (NEGATIVE) 08/23/17 08:41 Urine Blood Negative (NEGATIVE) 08/23/17 08:41 Urine Nitrate Negative (NEGATIVE) 08/23/17 08:41 Urine Bilirubin Negative (NEGATIVE) 08/23/17 08:41 Urine Urobilinogen Normal mg/dL (0.2-1.0) 08/23/17 08:41 Ur Leukocyte Esterase Neg Alicia/uL (Negative) 08/23/17 08:41 Urine RBC (Auto) < 1 /hpf (0-3) 08/23/17 08:41 - Hospital Course Hospital Course: Chief complaint: Feeling dizzy HPI: 61-year-old male with a history of bronchial asthma, chronic leg edema of the left leg, history of concussion in the past. Patient brought into the emergency room because he was not able to stand up and walk today while he was in the parking lot. He was also having symptoms of diarrhea for 3 days, and associated with 2 episodes of vomiting 2 days ago. Patient was not clear what attributed this. Yesterday he was not eating much, he was not drinking enough. He was continued to have a diarrheal episode, just watery stools up to 3 times. 1-2 episodes of vomiting. Today in the emergency room he was evaluated for dizziness, he did not lose any consciousness. But he felt like his knee giving away or he was standing up and trying to stand up. He was also feeling dizzy. In the emergency room he was also having some disorientation as per the patient' s most likely after the Antivert. But patient is now feeling much better after receiving IV fluids. He has no chest pain now. He denies any nausea vomiting headache or other systemic symptoms. No palpitation no dizziness Past medical history: History of bronchial asthma, gastroesophageal reflux disease, sleep apnea and obesity, chronic leg edema on the left side. Allergies multiple allergies including clindamycin coconut and penicillin Personal history he used to be a smoker in the past quit a few years ago. Socially drinks alcohol. Family history significant for heart disease and carotid. Surgical history multiple surgeries to the left leg. Review of system: Patient is having no headache, he denies any visual symptoms. Patient in the past is seen by neurologist many years ago for the concussion of the brain. He did not have any residual weakness. He denies any chest pain or shortness of breath, using CPAP for obstructive sleep apnea No abdominal pain, episodes of diarrhea, currently better. No recent antibiotic use Denies any vomiting now, but to 2 episodes of vomiting in the past noted. Patient's home medications reviewed On examination: Currently patient is sitting up, not in any distress. Chest good air entry Regular heart sound Nontender abdomen. 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 Assessment and recommendation: 61-year-old male with a history of chronic leg edema, history of bronchial asthma sinusitis, history of obstructive sleep apnea Admitted to the hospital with acute dizzy episode. Syncopal attack. Likely dehydration. But clinically improving with the fluid. Unlikely seizure activities, patient did not lose any consciousness, but mild disorientation noted. CT scan reveals old stroke like her encephalomalacia. We will get a carotid Doppler, echocardiogram, labs. Spoke to the patient and in detail. Patient in the past has been seen by neurologist, may be needing outpatient illogical evaluation. Will follow the patient hospital course: pt admitted to tele closely monitored pt felt well no episode of dizziness labs normal tele normal sinus stable to discharge pt will be dced home f/u as op f/u with neuro continue home meds diagnosis acute dizziness dehydration food poison asthma Discharge Exam - Head Exam Head Exam: ATRAUMATIC, NORMOCEPHALIC Discharge Plan - Follow Up Plan Condition: FAIR Disposition: HOME/ ROUTINE Instructions: Chronic Obstructive Pulmonary Disease (COPD), Including Emphysema , Asthma, Adult (DC), Dizziness, Nonvertigo, (DC), Near Fainting (DC) Additional Instructions: Discharge home today Follow up with primary MD , return to ED if symptoms return or worsen. Referrals: Tyrone Navarro MD [Staff Provider] -
== END 2017-08-24 15:20 | disposition home or self-care (01) ==
LOC: C.ER 07:11 → C.9E 10:48 → C.5S 13:54
PROVIDERS: ADMIT Internal Medicine; ATTEND Internal Medicine
DX: R42 Dizziness and giddiness (principal); E86.0 Dehydration; G47.33 Obstructive sleep apnea (adult) (pediatric); I65.29 Occlusion and stenosis of unspecified carotid artery; J45.909 Unspecified asthma, uncomplicated; Z87.891 Personal history of nicotine dependence; Z88.0 Allergy status to penicillin
CPT/HCPCS: 36415; 70450; 71045; 80053; 80061; 81001; 82948; 83036; 83880; 84484; 85025; 93306; 93880; 94660; 99285; G0378; J7030

== ENCOUNTER 2018-01-27 14:15 | Inpatient (IN) | payer OTHER ==
[2018-01-27 14:15] VITALS: BMI 41.5
[2018-01-27 15:24] LABS: BASO # 0.1 K/uL (0.0-0.2); BASO % 0.7 % (0.0-2.0); EOS # 0.5 K/uL (0.0-0.7); EOS % 5.1 % (0.0-4.0); HEMOGLOBIN 12.3 g/dL (12.0-18.0); LYMPH # 1.5 K/uL (1.0-4.3); LYMPH % 17.2 % (20.0-40.0); MEAN CORPUSCULAR HEMOGLOBIN 28.1 pg (27.0-31.0); MEAN CORPUSCULAR HGB CONC 33.5 g/dL (33.0-37.0); MEAN PLATELET VOLUME 7.7 fL (7.2-11.7); MONO # 0.8 K/uL (0.0-0.8); MONO % 8.4 % (0.0-10.0); NEUT # 6.1 K/uL (1.8-7.0); NEUT % 68.6 % (50.0-75.0); RBC 4.37 Mil/uL (4.40-5.90); RED CELL DISTRIBUTION WIDTH 15.2 % (11.5-14.5); WHITE BLOOD COUNT 8.9 K/uL (4.8-10.8)
[2018-01-27 15:38] LABS: ALB/GLOB RATIO 1.2 (1.0-2.1); ALBUMIN 3.8 g/dL (3.5-5.0); BLOOD UREA NITROGEN 15 mg/dL (9-20); CALCIUM 8.5 mg/dl (8.6-10.4); GFR NON-AFRICAN AMERICAN > 60
[2018-01-27 15:48] LABS: ALT/SGPT 20 U/L (21-72); AST/SGOT 22 U/L (17-59)
[2018-01-27] MEDS ORDERED: Vancomycin 1 GM 1 GM/250 ML BAG IVPB ONE (16:00)
--- NOTE | 2018-01-27 16:03 | RAD ---
Date of service: 01/27/2018 PROCEDURE: Left Foot Radiographs. HISTORY: ulcer COMPARISON: Left foot radiographs dated 10/16/2014.. FINDINGS: Prior 5th digit amputation. Multiple chronic changes including disorganization and destruction involving the tarsals, talus, calcaneus, tibia and fibula. Postsurgical changes appears similar. Lucency around the hardware may be related to loosening as result of destructive changes. Diffuse soft tissue swelling. 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 Superimposed osteomyelitis cannot be excluded. If there is concern for osteomyelitis, nuclear medicine three-phase bone scan and/or contrast-enhanced MRI can be obtained for further evaluation as clinically warranted.
--- NOTE | 2018-01-27 16:08 | C.PDOC ---
History Of Present Illness 62 y/o male presents to the ER complaining of left foot swelling. Patient states that he has blister to the left 4th toe. 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 He spoke to who recommended him to visit the ER. Denies having fever, chills, and other symptoms at this time. Time Seen by Provider: 01/27/18 14:28 Chief Complaint (Nursing): Abnormal Skin Integrity Past Medical History Vital Signs: Last Vital Signs Temp 98.0 F 01/27/18 14:21 Pulse 74 01/27/18 14:21 Resp 20 01/27/18 14:21 BP 111/71 01/27/18 14:21 Pulse Ox 98 01/27/18 14:21 - Medical History PMH: Arthritis, Asthma, Fractures (NASAL LEFT HAND/LEFT ANKLE), Gastritis, Sleep Apnea Denies: Chronic Kidney Disease Surgical History: Appendectomy - [employer] Procedures AMPUTATION STUMP RASHARD (11/20/12) ANKLE FUSION (05/02/14) CENTRAL VENOUS CATHETER PLACEMENT WITH GUIDANCE (10/23/12) INJECT ANTIBIOTIC (05/04/14) LOC EXC LES METATAR/TAR (11/20/12) MUSC/TEND LNG CHANGE NEC (05/02/14) OCCUPATIONAL THERAPY (05/04/14) PHYSICAL THERAPY NEC (05/04/14) RECREATIONAL THERAPY (05/04/14) REMOVE INT FIX DEVIC NEC (08/20/14) TENDON TRNSFR/TRANSPLANT (11/20/12) - Social History Hx Tobacco Use: No Hx Alcohol Use: Yes Hx Substance Use: No - Immunization History Hx Tetanus Toxoid Vaccination: No Hx Influenza Vaccination: Yes Hx Pneumococcal Vaccination: Yes ED Course And Treatment - Laboratory Results Result Diagrams: 01/27/18 15:15 01/27/18 15:15 O2 Sat by Pulse Oximetry: 98 Disposition Discussed With : Celi Werner Counseled Patient/Family Regarding: Studies Performed, Diagnosis - Disposition Disposition: HOSPITALIZED Disposition Time: 16:08 Forms: [employer] (Chilean) - Clinical Impression Clinical Impression: Skin ulcer, Cellulitis
[2018-01-27 16:09] LABS: VENOUS BLOOD GAS BASE EXCESS 0.8 mmol/L (0.0-2.0); VENOUS BLOOD GAS PCO2 49 mmHg (40-60); VENOUS BLOOD GAS PO2 21 mm/Hg (30-55); VENOUS BLOOD PH 7.35 (7.32-7.43)
--- NOTE | 2018-01-27 16:12 | C.PDOC ---
History Of Present Illness 62 y/o male presents to the ER complaining of left foot swelling. Patient states that he has blister to the left 4th toe. 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 He spoke to who recommended him to visit the ER. Denies having fever, chills, and other symptoms at this time. Time Seen by Provider: 01/27/18 14:28 Chief Complaint (Nursing): Abnormal Skin Integrity History Per: Patient History/Exam Limitations: no limitations Onset/Duration Of Symptoms: Days Current Symptoms Are (Timing): Still Present Severity: Moderate Past Medical History Reviewed: Historical Data, Nursing Documentation, Vital Signs Vital Signs: Last Vital Signs Temp 98.0 F 01/27/18 14:21 Pulse 74 01/27/18 14:21 Resp 20 01/27/18 14:21 BP 111/71 01/27/18 14:21 Pulse Ox 98 01/27/18 16:08 - Medical History PMH: Arthritis, Asthma, Fractures (NASAL LEFT HAND/LEFT ANKLE), Gastritis, Sleep Apnea Denies: Chronic Kidney Disease Surgical History: Appendectomy - [facility] Procedures AMPUTATION STUMP RASHARD (11/20/12) ANKLE FUSION (05/02/14) CENTRAL VENOUS CATHETER PLACEMENT WITH GUIDANCE (10/23/12) INJECT ANTIBIOTIC (05/04/14) LOC EXC LES METATAR/TAR (11/20/12) MUSC/TEND LNG CHANGE NEC (05/02/14) OCCUPATIONAL THERAPY (05/04/14) PHYSICAL THERAPY NEC (05/04/14) RECREATIONAL THERAPY (05/04/14) REMOVE INT FIX DEVIC NEC (08/20/14) TENDON TRNSFR/TRANSPLANT (11/20/12) Family History: States: No Known Family Hx - Social History Hx Tobacco Use: No Hx Alcohol Use: Yes Hx Substance Use: No - Immunization History Hx Tetanus Toxoid Vaccination: No Hx Influenza Vaccination: Yes Hx Pneumococcal Vaccination: Yes Review Of Systems Except As Marked, All Systems Reviewed And Found Negative. Constitutional: Negative for: Fever, Chills Musculoskeletal: Positive for: Foot Pain Physical Exam - Physical Exam Appears: Non-toxic, No Acute Distress Skin: Normal Color, Warm, Dry, Other (ruptured blister formation to left 4th toe, callus to plantar surface with pustular drainage) Head: Atraumatic, Normacephalic Eye(s): bilateral: Normal Inspection Nose: Normal Oral Mucosa: Moist Neck: Supple Chest: Symmetrical Cardiovascular: Rhythm Regular Respiratory: Normal Breath Sounds, No Rales, No Rhonchi, No Wheezing Gastrointestinal/Abdominal: Normal Exam, Soft, No Tenderness, No Guarding, No Rebound Extremity: Normal ROM, No Tenderness, Swelling (swelling to left foot) Neurological/Psych: Oriented x3, Normal Speech ED Course And Treatment - Laboratory Results Result Diagrams: 01/27/18 15:15 01/27/18 15:15 ECG: Interpreted By Me, Viewed By Me ECG Rhythm: Sinus Rhythm Interpretation Of ECG: NSR with normal intervals, normal axises, and no ST/ T wave changes Rate From EC O2 Sat by Pulse Oximetry: 98 (RA) Pulse Ox Interpretation: Normal - Other Rad X-Ray-Left Foot X-Ray: Viewed By Me, Read By Radiologist Interpretation: Date of service: 01/27/2018. PROCEDURE: Left Foot Radiographs. HISTORY: ulcer. COMPARISON: Left foot radiographs dated 10/16/2014.. FINDINGS: Prior 5th digit amputation. Multiple chronic changes including disorganization and destruction involving the tarsals, talus, calcaneus, tibia and fibula. Postsurgical changes appears similar. Lucency around the hardware may be related to loosening as result of destructive changes. Diffuse soft tissue swelling. 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 Superimposed osteomyelitis cannot be excluded. If there is concern for osteomyelitis, nuclear medicine three-phase bone scan and/or contrast-enhanced MRI can be obtained for further evaluation as clinically warranted. Medical Decision Making Medical Decision Making: Assessment: Skin Ulcer, Cellulitis Plan: --Labs --X-Ray-Left Foot Updates: 15:36 Podiatry resident evaluated patient. She recommended that paytoient be treated with IV abx. She also recommended for patient to be admitted and to have DARSHAN Cagle, on consult. Disposition Discussed With : Clei Werner Doctor Will See Patient In The: Hospital Counseled Patient/Family Regarding: Studies Performed, Diagnosis - Disposition Disposition: HOSPITALIZED Disposition Time: 16:08 Condition: FAIR - Clinical Impression Clinical Impression: Skin ulcer, Cellulitis - Scribe Statement The provider has reviewed the documentation as recorded by the Scribe [employer] Provider Attestation: All medical record entries made by the Papa were at my direction and personally dictated by me. I have reviewed the chart and agree that the record accurately reflects my personal performance of the history, physical exam, medical decision making, and the department course for this patient. I have also personally directed, reviewed, and agree with the discharge instructions and disposition.
--- NOTE | 2018-01-27 17:47 | CP.PCM.HP ---
History of Present Illness - History of Present Illness History of Present Illness: chief complaints: Discoloration of the left side little toe HPI: Patient is a 62-year-old male with a history of bronchial asthma chronic left leg edema history of concussion in the past, multiple left foot surgery, a rthrodesis of the left ankle came to the emergency room after he was noticed discoloration of the left little toe. Patient was having some ulcer in the base of the little toe on the left side, which was being treated conservatively. 5 days ago there was no change in the color of the toes. The dressing was being done recently. But 2 days ago he noticed sudden discoloration, purplish discoloration of the little toe, and blister formation, then splitting of the skin noted. He did not have any sensation, no pain noted. On the day he was working at least 16 hours standing. There was no injury or fall noted. Patient started having some discharge also and blood also noted. Currently he has no pain. No other systemic symptoms including fever chills nausea vomiting or other constitutional symptoms. Patient in the past had extensive surgical intervention to the left leg and associated with a chronic left leg edema. Past medical history: History of bronchial asthma, gastroesophageal reflux disease, sleep apnea and obesity, chronic leg edema on the left side. Allergies multiple allergies including clindamycin, coconut and penicillin Personal history he used to be a smoker in the past quit a few years ago. Socially drinks alcohol. Family history significant for heart disease and carotid. Surgical history multiple surgeries to the left leg. Review of system: Patient is having no headache, he denies any visual symptoms. Patient in the past is seen by neurologist many years ago for the concussion of the brain. He did not have any residual weakness. He denies any chest pain or shortness of breath, using CPAP for obstructive sleep apnea No abdominal pain, episodes of diarrhea, currently better. Patient noticed discoloration of the left little toe. Denies any vomiting now, but to 2 episodes of vomiting in the past noted. Patient's home medications reviewed On examination: Currently patient is sitting up, not in any distress. Chest good air entry Regular heart sound Nontender abdomen. Patient has a ulcer in the base of the left little toe. There is also discoloration of the left a little to fifth digit the base. There is also discharge noted. Cultures were sent. Labs are nonspecifi We will repeat the Labs tomorrow Assessment and recommendation: 61-year-old male with a history of chronic leg edema, history of bronchial asthma sinusitis, history of obstructive sleep apnea 62-year-old male with a history of chronic leg edema, bronchial asthma, chronic sinusitis and a history of obstructive sleep apnea came to the emergency room with the left leg cellulitis involving the left fifth digit and base. Associated with ischemic changes. Underlying vascular causes cannot be ruled out, and also ostial myelitis cannot be ruled out. We will get nuclear scan, CAT scan and vascular studies. Spoke to the infectious disease. Currently on antibiotic. Clinically he is stable. Podiatry evaluation and follow-up, DVT GI prophylaxis and will follow-up the shayan elkins. Will continue his home medications and the CPAP for his sleep apnea. Present on Admission - Present on Admission Any Indicators Present on Admission: No History of DVT/PE: No History of Uncontrolled Diabetes: No Urinary Catheter: No Decubitus Ulcer Present: No Past Patient History - Past Medical History & Family History Past Medical History?: Yes - Past Social History Smoking Status: Former Smoker - CARDIAC Hx Cardiac Disorders: No Hx Circulatory Problems: Yes (LYMPHADEMA LEFT LEG) - PULMONARY Hx Asthma: Yes Hx Sleep Apnea: Yes - NEUROLOGICAL Hx Neurological Disorder: No - HEENT Hx HEENT Problems: Yes Hx Cataracts: Yes - RENAL Hx Chronic Kidney Disease: No - ENDOCRINE/METABOLIC Hx Endocrine Disorders: No - HEMATOLOGICAL/ONCOLOGICAL Hx Blood Disorders: No - INTEGUMENTARY Hx Dermatological Problems: Yes (FOOT ULCER) - MUSCULOSKELETAL/RHEUMATOLOGICAL Hx Arthritis: Yes Hx Fractures: Yes (NASAL LEFT HAND/LEFT ANKLE) - GASTROINTESTINAL Hx Gastritis: Yes - GENITOURINARY/GYNECOLOGICAL Hx Genitourinary Disorders: No - PSYCHIATRIC Hx Substance Use: No - SURGICAL HISTORY Hx Appendectomy: Yes - ANESTHESIA Hx Anesthesia: Yes Hx Anesthesia Reactions: No Hx Malignant Hyperthermia: No Meds Allergies/Adverse Reactions: Allergies Allergy/AdvReac Type Severity Reaction Status Date / Time clindamycin Allergy Intermediate REDNESS Verified 01/27/18 14:26 coconut Allergy Intermediate SWELLING Verified 01/27/18 14:26 coconut oil Allergy Intermediate SWELLING Verified 01/27/18 14:26 penicillin G Allergy Intermediate RASH Verified 01/27/18 14:26 tetanus and diphtheria Allergy Intermediate RASH Verified 01/27/18 14:26 toxoids tetanus toxoid, adsorbed Allergy Intermediate RASH Verified 01/27/18 14:26 Results - Vital Signs Recent Vital Signs: Last Vital Signs Temp 97.9 F 01/27/18 17:33 Pulse 73 01/27/18 17:33 Resp 20 01/27/18 17:33 BP 139/70 01/27/18 17:33 Pulse Ox 97 01/27/18 17:33 - Labs Result Diagrams: 01/27/18 15:15 01/27/18 15:15 Labs: Laboratory Results - last 24 hr 01/27/18 01/27/18 01/27/18 15:15 15:15 16:05 WBC 8.9 RBC 4.37 L Hgb 12.3 Hct 36.7 MCV 84.0 MCH 28.1 MCHC 33.5 RDW 15.2 H Plt Count 263 MPV 7.7 Neut % (Auto) 68.6 Lymph % (Auto) 17.2 L Beaver % (Auto) 8.4 Eos % (Auto) 5.1 H Baso % (Auto) 0.7 Neut # (Auto) 6.1 Lymph # (Auto) 1.5 Beaver # (Auto) 0.8 Eos # (Auto) 0.5 Baso # (Auto) 0.1 pO2 21 L VBG pH 7.35 VBG pCO2 49 VBG HCO3 23.8 VBG Total CO2 28.6 H VBG O2 Sat (Calc) 38.5 L VBG Base Excess 0.8 VBG Potassium 3.7 Glucose 76 Lactate 1.0 Sodium 135 136.0 Potassium 4.2 Chloride 103 101.0 Carbon Dioxide 24 Anion Gap 13 BUN 15 Creatinine 0.6 L Est GFR ( Amer) > 60 Est GFR (Non-Af Amer) > 60 Random Glucose 84 Calcium 8.5 L Total Bilirubin 0.8 AST 22 ALT 20 L D Alkaline Phosphatase 78 Total Protein 7.0 Albumin 3.8 Globulin 3.2 Albumin/Globulin Ratio 1.2 Venous Blood Potassium 3.7
[2018-01-27] MEDS: Ceftaroline 600 MG in Sodium Chloride 0.9% 100 ML IVPB SCH (20:40)
--- NOTE | 2018-01-27 22:19 | CP.PCM.CON ---
History of Present Illness - History of Present Illness History of Present Illness: Podiatry Consult Note- Dr. Medina 62M seen and evaluated in the ED regarding left foot infected ulceration with cellulitis. Patient reports had multiple surgeries in the left foot. Reports that for many years he had a callus underneath the 4th toe that has been treated by Dr. Medina with debridement in office. Reports noticing blister a few days ago and saw Dr. Medina. Reports noticing a wound and drainage from under the 4th digit days after. is present at bedside. reports seeing thick, white drainage from wound. Reports she has been taking care of the wound with silvercell dressing but foot appears worse in swelling and redness. Spoke to Dr. Medina which advised patient to go to ED for further evaluation for worsening left foot swelling and redness. Patient reports 3/10 pain at present, describes pain as a stabbing pain. Reports works for [employer] and is on his feet for many hours 12+ per day which may attribute to his present problem. Patient denies nausea, fever, shortness of breath, chest pains or chills. PMH: asthma PSH: multiple left foot surgery, hernia repair SH: denies drinking or illicit drug use, former smoker- 10 years 1ppd, quit 30 years ago ALL: clindamcyin, coconut, penicillin G, tetanus MEDS: see MAR list Past Patient History - Past Medical History & Family History Past Medical History?: Yes - Past Social History Smoking Status: Former Smoker - CARDIAC Hx Cardiac Disorders: No Hx Circulatory Problems: Yes (LYMPHADEMA LEFT LEG) - PULMONARY Hx Asthma: Yes Hx Sleep Apnea: Yes - NEUROLOGICAL Hx Neurological Disorder: No - HEENT Hx HEENT Problems: Yes Hx Cataracts: Yes - RENAL Hx Chronic Kidney Disease: No - ENDOCRINE/METABOLIC Hx Endocrine Disorders: No - HEMATOLOGICAL/ONCOLOGICAL Hx Blood Disorders: No - INTEGUMENTARY Hx Dermatological Problems: Yes (FOOT ULCER) - MUSCULOSKELETAL/RHEUMATOLOGICAL Hx Arthritis: Yes Hx Falls: No Hx Fractures: Yes (NASAL LEFT HAND/LEFT ANKLE) - GASTROINTESTINAL Hx Gastritis: Yes - GENITOURINARY/GYNECOLOGICAL Hx Genitourinary Disorders: No - PSYCHIATRIC Hx Substance Use: No - SURGICAL HISTORY Hx Appendectomy: Yes - ANESTHESIA Hx Anesthesia: Yes Hx Anesthesia Reactions: No Hx Malignant Hyperthermia: No Meds Allergies/Adverse Reactions: Allergies Allergy/AdvReac Type Severity Reaction Status Date / Time clindamycin Allergy Intermediate REDNESS Verified 01/27/18 14:26 coconut Allergy Intermediate SWELLING Verified 01/27/18 14:26 coconut oil Allergy Intermediate SWELLING Verified 01/27/18 14:26 penicillin G Allergy Intermediate RASH Verified 01/27/18 14:26 tetanus and diphtheria Allergy Intermediate RASH Verified 01/27/18 14:26 toxoids tetanus toxoid, adsorbed Allergy Intermediate RASH Verified 01/27/18 14:26 - Medications Medications: Current Medications Famotidine (Pepcid) 20 mg PO DAILY [facility] Fluticasone/Vilanterol (Breo Ellipta 100-25 Mcg Inh) 1 puff INH RQ24 [facility] Heparin Sodium (Porcine) (Heparin) 5,000 units SC Q8 [facility] Ceftaroline Fosamil 600 mg/ (Sodium Chloride) 100 mls @ 100 mls/hr IVPB Q12H [facility]; Protocol Last Admin: 01/27/18 20:40 Dose: 100 mls/hr Loratadine (Claritin) 10 mg PO DAILY [facility] Montelukast Sodium (Singulair) 10 mg PO HS [facility] Physical Exam - Constitutional Appears: Well, Non-toxic, No Acute Distress - Extremities Exam Extremities exam: Negative for: calf tenderness Additional comments: L lower extremity focused examination: VASC: DP and PT unpalpable secondary to pitting edema, temperature warm to warm, CFT delayed, moderate swelling noted to the left foot ORTHO: pain to palpation to the lateral forefoot, MM is 4/5 in all four compartments: dorsiflexion, planterflexion, eversion and inversion, AROM 1-5 present NEURO: gross sensation intact, protective sensation diminished DERM: ulceration at sub met 4 measuring approximately 1cm in diameter and probes to deep to bone, periwound is macerated and hyperkeratotic, depth measures approximately 1.5 cm, malodorous wound, minimal drainage noted during examination, erythema present, no streaking appreciated, undermining and tunneling noted. Deroofed blister noted to 4th digit with separation of epidermis-dermis junction, wound base is raw and granular, maceration noted in 3rd interspace and plantar aspect of 3rd and 4th digit. No fluctanace and abscess appreciated Results - Vital Signs Recent Vital Signs: Last Vital Signs Temp 97.9 F 01/27/18 17:33 Pulse 73 01/27/18 17:33 Resp 20 01/27/18 17:33 BP 139/70 01/27/18 17:33 Pulse Ox 98 01/27/18 18:20 - Labs Result Diagrams: 01/27/18 15:15 01/27/18 15:15 Labs: Laboratory Results - last 24 hr 01/27/18 01/27/18 01/27/18 15:15 15:15 16:05 WBC 8.9 RBC 4.37 L Hgb 12.3 Hct 36.7 MCV 84.0 MCH 28.1 MCHC 33.5 RDW 15.2 H Plt Count 263 MPV 7.7 Neut % (Auto) 68.6 Lymph % (Auto) 17.2 L Cochran % (Auto) 8.4 Eos % (Auto) 5.1 H Baso % (Auto) 0.7 Neut # (Auto) 6.1 Lymph # (Auto) 1.5 Cochran # (Auto) 0.8 Eos # (Auto) 0.5 Baso # (Auto) 0.1 pO2 21 L VBG pH 7.35 VBG pCO2 49 VBG HCO3 23.8 VBG Total CO2 28.6 H VBG O2 Sat (Calc) 38.5 L VBG Base Excess 0.8 VBG Potassium 3.7 Glucose 76 Lactate 1.0 Sodium 135 136.0 Potassium 4.2 Chloride 103 101.0 Carbon Dioxide 24 Anion Gap 13 BUN 15 Creatinine 0.6 L Est GFR ( Amer) > 60 Est GFR (Non-Af Amer) > 60 Random Glucose 84 Calcium 8.5 L Total Bilirubin 0.8 AST 22 ALT 20 L D Alkaline Phosphatase 78 Total Protein 7.0 Albumin 3.8 Globulin 3.2 Albumin/Globulin Ratio 1.2 Venous Blood Potassium 3.7 Assessment & Plan - Assessment and Plan (Free Text) Assessment: 62M seen and evaluated in the ED regarding left foot infected ulceration with cellulitis and 4th digit deroofed blister Plan: Patient seen and examined Discussed plan in detail with attending Dr. Medina Labs, vitals, chart reviewed (absent leukocytosis) X-rays - no gas emphysema noted appreciated, possible OM vs postsurgical changes vs Charcot X-ray Impression: Extensive destructive neuropathic joint disease with similar findings as before. Superimposed osteomyelitis cannot be excluded. If there is concern for osteomyelitis, nuclear medicine three-phase bone scan and/or contrast-enhanced MRI can be obtained for further evaluation as clinically warranted. Wound culture left foot taken- pending Cleansed ulceration with copious amounts of saline/betadine, dressed with betadine w2d ID consulted- recommendations appreciated Ordered Bone scan to be taken once on floors to r/o OM ESR/CRP in AM ordered Thank you for allowing us to participate in patient's care Will continue to follow while on floors
[2018-01-28] MEDS: Ceftaroline 600 MG in Sodium Chloride 0.9% 100 ML IVPB SCH ×2 (06:03→18:47)
[2018-01-28] MEDS ORDERED: Fluticasone-Vilanterol 100/25mcg Diskus INH SCH (08:00)
--- NOTE | 2018-01-28 08:25 | CP.PCM.PN ---
Subjective - Date & Time of Evaluation Date of Evaluation: 01/28/18 Time of Evaluation: 08:24 - Subjective Subjective: pt is sitting up comfortable tolerated antibiotic will get CT and labs clinically doing well no pain will check for OM 62-year-old male with a history of chronic leg edema, bronchial asthma, chronic sinusitis and a history of obstructive sleep apnea multiple surgery in the leg on the left continue current treatment Objective - Vital Signs/Intake and Output Vital Signs (last 24 hours): Temp Pulse Resp BP Pulse Ox 97.8 F 66 20 120/70 98 01/28/18 04:00 01/28/18 04:00 01/28/18 04:00 01/28/18 04:00 01/28/18 04:00 Intake and Output: 01/28/18 01/28/18 06:59 18:59 Intake Total 220 Balance 220 - Medications Medications: Current Medications Famotidine (Pepcid) 20 mg PO DAILY [facility] Fluticasone/Vilanterol (Breo Ellipta 100-25 Mcg Inh) 1 puff INH RQ24 [facility] Heparin Sodium (Porcine) (Heparin) 5,000 units SC Q8 [facility] Last Admin: 01/28/18 06:09 Dose: 5,000 units Ceftaroline Fosamil 600 mg/ (Sodium Chloride) 100 mls @ 100 mls/hr IVPB Q12H [facility]; Protocol Last Admin: 01/28/18 06:03 Dose: 100 mls/hr Loratadine (Claritin) 10 mg PO DAILY [facility] Montelukast Sodium (Singulair) 10 mg PO HS [facility] Last Admin: 01/27/18 22:02 Dose: 10 mg - Labs Labs: 01/27/18 15:15 01/27/18 15:15
--- NOTE | 2018-01-28 11:29 | CT ---
Date of service: 01/28/2018 PROCEDURE: LEFT FOOT CT WITHOUT CONTRAST HISTORY: osteomyelitis COMPARISON: Left foot radiographs 01/27/2018 as well as left foot and ankle dated 10/16/2014 and tibia fibula dated 09/08/2016. TECHNIQUE: A volumetric CT acquisition through the left ankle and foot has been performed without intravenous contrast. Reformatted dataset provided in multiple planes. Intravenous contrast not administered as per referring physician request. Contrast Dose: None Radiation dose:Total exam DLP = 970.77 mGy-cm. This CT exam was performed using one or more of the following dose reduction techniques: Automated exposure control, adjustment of the mA and/or kV according to patient size, and/or use of iterative reconstruction technique. FINDINGS: Images through the foot and ankle reveal extensive peripheral soft tissue edema in fluid diffusely. Further, patient seen to be status post multifocal arthrodesis ease at the midfoot as well as at the ankle by various orthopedic hardware. The lateral hindfoot hardware appears well anchored within bone however the remaining hardware including the length the intramedullary nail at the distal tibia, the talus and calcaneus as well as screws at the midfoot and hindfoot more medially have significant lucency related particularly at the level of the calcaneus. The lucency here as well as at least at the bone associated with the medial hindfoot (? Anterior talus) has increased significantly interval and bony destruction at the dorsal midfoot and hindfoot as well as anterior to the ankle is apparent with delete osteomyelitis suspected at least in these locations if not in the midfoot as well given areas of prominent lucency within the medial and middle cuneiform bones in particular. Extensive diffuse cellulitis is seen involving the distal leg, ankle and foot with emphysematous soft tissue seen at medial 4th digit soft tissues without local erosive or reactive bony changes appreciated. Prior left 5th digit and metatarsal resection reiterated. IMPRESSION: Gross distal left leg, ankle and foot cellulitis is appreciated with emphysematous changes related to the 4th digit soft tissues medially but without local significant bony changes at the 4th digit. However, extensive lucency is increasing at the hindfoot/ankle arthrodesis (surrounding intramedullary ankle/foot nail and medial midfoot/hindfoot arthrodesis screws) extensive lucency identified within numerous bone suggestive of osteomyelitis as discussed above. Prior left 5th digit and 5th metatarsal resection reiterated.
--- NOTE | 2018-01-28 14:56 | CP.PCM.PN ---
Subjective - Date & Time of Evaluation Date of Evaluation: 01/28/18 Time of Evaluation: 14:53 - Subjective Subjective: Podiatry Progress Note for Dr. Adam LindM seen and evaluated at bedside for left fourth digit infection and plantar left foot ulceration. Patient is AAO x 3 and NAD, resting comfortably in bed at time of visit. Denies any pain, acute overnight events or new pedal complaints at this time. Denies any recent N/V/F/C/CP/SOB/D Objective - Vital Signs/Intake and Output Vital Signs (last 24 hours): Temp Pulse Resp BP Pulse Ox 98.3 F 69 20 117/73 96 01/28/18 08:23 01/28/18 08:23 01/28/18 08:23 01/28/18 08:23 01/28/18 08:23 Intake and Output: 01/28/18 01/28/18 06:59 18:59 Intake Total 220 Balance 220 - Medications Medications: Current Medications Famotidine (Pepcid) 20 mg PO DAILY [facility] Last Admin: 01/28/18 11:23 Dose: 20 mg Fluticasone/Vilanterol (Breo Ellipta 100-25 Mcg Inh) 1 puff INH RQ24 [facility] Heparin Sodium (Porcine) (Heparin) 5,000 units SC Q8 [facility] Last Admin: 01/28/18 13:33 Dose: 5,000 units Ceftaroline Fosamil 600 mg/ (Sodium Chloride) 100 mls @ 100 mls/hr IVPB Q12H [facility]; Protocol Last Admin: 01/28/18 06:03 Dose: 100 mls/hr Loratadine (Claritin) 10 mg PO DAILY [facility] Last Admin: 01/28/18 11:22 Dose: 10 mg Montelukast Sodium (Singulair) 10 mg PO HS [facility] Last Admin: 01/27/18 22:02 Dose: 10 mg - Labs Labs: 01/27/18 15:15 01/27/18 15:15 - Constitutional Appears: Well, Non-toxic, No Acute Distress - Extremities Exam Additional comments: L lower extremity focused examination: VASC: DP and PT unpalpable secondary to pitting edema, temperature warm to warm, CFT delayed, moderate swelling noted to the left foot specifically at left fourth digit which is noted to be highly edematous and erythematous with evidence of infection noted ORTHO: pain on palpation to the lateral forefoot, MM is 4/5 in all four compartments: dorsiflexion, planterflexion, eversion and inversion, AROM 1-5 present NEURO: gross sensation intact, protective sensation diminished DERM: ulceration at sub met 4 measuring approximately 1cm in diameter and probes to deep to bone, periwound is macerated and hyperkeratotic, depth measures approximately 1.5 cm, malodorous wound, minimal drainage noted during examination, erythema present, no streaking appreciated, undermining and tunneling noted. Deroofed blister noted to 4th digit with separation of epidermis-dermis j unction, wound base is raw and granular, maceration noted in 3rd interspace and plantar aspect of 3rd and 4th digit. No fluctanace and abscess appreciated. - Neurological Exam Neurological Exam: Alert, Awake, Oriented x3 - Psychiatric Exam Psychiatric exam: Normal Affect, Normal Mood Assessment and Plan - Assessment and Plan (Free Text) Assessment: 62M seen and evaluated at bedside for left fourth digit infection and plantar left foot ulceration Plan: Patient seen and evaluated Plan discussed with Dr. Medina CBC/BMP ordered next day AM Continue IV abx per ID wound cx left foot- pending L foot [id number] OM vs Charcot, recs bone scan LE CT: read pending ESR-pending CRP- pending bone scan- pending Plan for incision and drainage of left fourth digit on Wednesday 01/31 pending OR availability with Dr. Medina Medical/cardiac clearance needed Wound dressed with betadine, DSD Podiatry will continue to follow while patient in house
[2018-01-28 15:25] LABS: BASO # 0.1 K/uL (0.0-0.2); BASO % 0.7 % (0.0-2.0); EOS # 0.5 K/uL (0.0-0.7); EOS % 6.4 % (0.0-4.0); HEMOGLOBIN 13.1 g/dL (12.0-18.0); LYMPH # 1.5 K/uL (1.0-4.3); LYMPH % 18.4 % (20.0-40.0); MEAN CORPUSCULAR HEMOGLOBIN 28.3 pg (27.0-31.0); MEAN CORPUSCULAR HGB CONC 33.3 g/dL (33.0-37.0); MEAN PLATELET VOLUME 7.8 fL (7.2-11.7); MONO # 0.5 K/uL (0.0-0.8); MONO % 6.7 % (0.0-10.0); NEUT # 5.4 K/uL (1.8-7.0); NEUT % 67.8 % (50.0-75.0); RBC 4.64 Mil/uL (4.40-5.90); RED CELL DISTRIBUTION WIDTH 15.2 % (11.5-14.5)
[2018-01-28 15:36] LABS: ALB/GLOB RATIO 1.2 (1.0-2.1); ALBUMIN 3.8 g/dL (3.5-5.0); ALT/SGPT 22 U/L (21-72); AST/SGOT 14 U/L (17-59); BLOOD UREA NITROGEN 14 mg/dL (9-20); CALCIUM 8.9 mg/dl (8.6-10.4); GFR NON-AFRICAN AMERICAN > 60
--- NOTE | 2018-01-28 19:23 | CP.PCM.CON ---
History of Present Illness - History of Present Illness History of Present Illness: INFECTIOUS DISEASE CONSULTATION MAXWELL JAIN MD, FACP 6T [id number] 01/28/2018 CHART REVIEWED PT EXAMINED [facility], DR BRUNNER, MRS FERNANDEZ AND PATIENT chief complaints: Discoloration of the left 4TH TOE... HPI: Patient is a 62-year-old male with a history of bronchial asthma, chronic left leg edema, history of concussion in the past, AND multiple left foot surgerIES, arthrodesis of the left ankle WHO came to the emergency room after he was noticed discoloration of the left 4TH TOE-HE SURGICALLY MISSING HIS 5TH TOE PRESVIOUSLY. Patient was having some ulcer in the base of the 4TH toe on the left side, which was being treated conservatively. 5 days ago there was no change in the color of the toes. The dressing was being done recently. But 2 days ago he noticed sudden discoloration, purplish discoloration of the toe, and blister formation, then splitting of the skin noted. He did not have any sensation, AND no pain noted. On the day he was working at least 16 hours standing. There was no injury or fall noted. Patient started having some discharge also and blood also noted. Currently he has no pain. No other systemic symptoms including fever chills nausea vomiting or other constitutional symptoms. Patient in the past had extensive surgical intervention to the left leg and associated with a chronic left leg edema. Past medical history: History of bronchial asthma, gastroesophageal reflux disease, sleep apnea and obesity, chronic leg edema on the left side. Allergies multiple allergies including clindamycin, coconut and penicillin Personal history he used to be a smoker in the past quit a few years ago. Socially drinks alcohol. Family history significant for heart disease and carotid. Surgical history multiple surgeries to the left leg. Review of system: Patient is having no headache, he denies any visual symptoms. Patient in the past is seen by neurologist many years ago for the concussion of the brain. He did not have any residual weakness. He denies any chest pain or shortness of breath, using CPAP for obstructive sleep apnea No abdominal pain, episodes of diarrhea, currently better. Patient noticed discoloration of the left little toe. Denies any vomiting now, On examination: Currently patient is sitting up, not in any distress. Chest good air entry Regular heart sound Nontender abdomen. Patient has a ulcer in the base of the left 4TH toe. There is also discoloration of the left a little to fifth digit the base. There is also discharge noted. Cultures were sent. Labs are nonspecifiC We will repeat the Labs tomorrow Assessment and recommendation: 62-year-old male with a history of chronic leg edema, bronchial asthma, chronic sinusitis and a history of obstructive sleep apnea came to the emergency room with the left leg cellulitis involving the left fifth digit and base. Associated with ischemic changes. Underlying vascular causes cannot be ruled out, and also OSTEOMYLITIS cannot be ruled out, PROGRESSIVE CHARCOT'S JOINT+/-INFECTION, TO BE CONSIDERED. We will get nuclear scan-IF SAFE-MAY HAVE SCREWS AND HARDWEARE, CAT scan and vascular studies, INDIUM 111 TAGGED WBC SCAN. FROM THE ID POINT OF VIEW, TEFLARO IS THE DRUG OF CHOICE ON NIGHT ONE, IN FACT THE GRAM STAIN SHOW SHOWS MANY GRAM + COCCI!!! Clinically he is stable. Podiatry evaluation and follow-up, DVT GI prophylaxis and will follow-up the patient. Will continue his home medications and the CPAP for his sleep apnea. Present on Admission - Present on Admission Any Indicators Present on Admission: No History of DVT/PE: No History of Uncontrolled Diabetes: No Urinary Catheter: No Decubitus Ulcer Present: No Past Patient History - Past Medical History & Family History Past Medical History?: Yes - Past Social History Smoking Status: Former Smoker - CARDIAC Hx Cardiac Disorders: No Hx Circulatory Problems: Yes (LYMPHADEMA LEFT LEG) - PULMONARY Hx Asthma: Yes Hx Sleep Apnea: Yes - NEUROLOGICAL Hx Neurological Disorder: No - HEENT Hx HEENT Problems: Yes Hx Cataracts: Yes - RENAL Hx Chronic Kidney Disease: No - ENDOCRINE/METABOLIC Hx Endocrine Disorders: No - HEMATOLOGICAL/ONCOLOGICAL Hx Blood Disorders: No - INTEGUMENTARY Hx Dermatological Problems: Yes (FOOT ULCER) - MUSCULOSKELETAL/RHEUMATOLOGICAL Hx Arthritis: Yes Hx Fractures: Yes (NASAL LEFT HAND/LEFT ANKLE) - GASTROINTESTINAL Hx Gastritis: Yes - GENITOURINARY/GYNECOLOGICAL Hx Genitourinary Disorders: No - PSYCHIATRIC Hx Substance Use: No - SURGICAL HISTORY Hx Appendectomy: Yes - ANESTHESIA Hx Anesthesia: Yes Hx Anesthesia Reactions: No Hx Malignant Hyperthermia: No Meds Allergies/Adverse Reactions: Allergies Allergy/AdvReac Type Severity Reaction Status Date / Time clindamycin Allergy Intermediate REDNESS Verified 01/27/18 14:26 coconut Allergy Intermediate SWELLING Verified 01/27/18 14:26 coconut oil Allergy Intermediate SWELLING Verified 01/27/18 14:26 penicillin G Allergy Intermediate RASH Verified 01/27/18 14:26 tetanus and diphtheria Allergy Intermediate RASH Verified 01/27/18 14:26 toxoids tetanus toxoid, adsorbed Allergy Intermediate RASH Verified 01/27/18 14:26 Results - Vital Signs Recent Vital Signs: Last Vital Signs Temp 97.9 F 01/27/18 17:33 Pulse 73 01/27/18 17:33 Resp 20 01/27/18 17:33 BP 139/70 01/27/18 17:33 Pulse Ox 97 01/27/18 17:33 - Labs Result Diagrams: 01/27/18 15:15 01/27/18 15:15 Labs: Laboratory Results - last 24 hr 01/27/18 01/27/18 01/27/18 15:15 15:15 16:05 WBC 8.9 RBC 4.37 L Hgb 12.3 Hct 36.7 MCV 84.0 MCH 28.1 MCHC 33.5 RDW 15.2 H Plt Count 263 MPV 7.7 Neut % (Auto) 68.6 Lymph % (Auto) 17.2 L Eaton % (Auto) 8.4 Eos % (Auto) 5.1 H Baso % (Auto) 0.7 Neut # (Auto) 6.1 Lymph # (Auto) 1.5 Eaton # (Auto) 0.8 Eos # (Auto) 0.5 Baso # (Auto) 0.1 pO2 21 L VBG pH 7.35 VBG pCO2 49 VBG HCO3 23.8 VBG Total CO2 28.6 H VBG O2 Sat (Calc) 38.5 L VBG Base Excess 0.8 VBG Potassium 3.7 Glucose 76 Lactate 1.0 Sodium 135 136.0 Potassium 4.2 Chloride 103 101.0 Carbon Dioxide 24 Anion Gap 13 BUN 15 Creatinine 0.6 L Est GFR ( Amer) > 60 Est GFR (Non-Af Amer) > 60 Random Glucose 84 Calcium 8.5 L Total Bilirubin 0.8 AST 22 ALT 20 L D Alkaline Phosphatase 78 Total Protein 7.0 Albumin 3.8 Globulin 3.2 Albumin/Globulin Ratio 1.2 Venous Blood Potassium 3.7 Past Patient History - Past Medical History & Family History Past Medical History?: Yes - Past Social History Smoking Status: Former Smoker - CARDIAC Hx Cardiac Disorders: No Hx Circulatory Problems: Yes (LYMPHADEMA LEFT LEG) - PULMONARY Hx Asthma: Yes Hx Sleep Apnea: Yes - NEUROLOGICAL Hx Neurological Disorder: No - HEENT Hx HEENT Problems: Yes Hx Cataracts: Yes - RENAL Hx Chronic Kidney Disease: No - ENDOCRINE/METABOLIC Hx Endocrine Disorders: No - HEMATOLOGICAL/ONCOLOGICAL Hx Blood Disorders: No - INTEGUMENTARY Hx Dermatological Problems: Yes (FOOT ULCER) - MUSCULOSKELETAL/RHEUMATOLOGICAL Hx Arthritis: Yes Hx Falls: No Hx Fractures: Yes (NASAL LEFT HAND/LEFT ANKLE) - GASTROINTESTINAL Hx Gastritis: Yes - GENITOURINARY/GYNECOLOGICAL Hx Genitourinary Disorders: No - PSYCHIATRIC Hx Substance Use: No - SURGICAL HISTORY Hx Appendectomy: Yes - ANESTHESIA Hx Anesthesia: Yes Hx Anesthesia Reactions: No Hx Malignant Hyperthermia: No Meds Allergies/Adverse Reactions: Allergies Allergy/AdvReac Type Severity Reaction Status Date / Time clindamycin Allergy Intermediate REDNESS Verified 01/27/18 14:26 coconut Allergy Intermediate SWELLING Verified 01/27/18 14:26 coconut oil Allergy Intermediate SWELLING Verified 01/27/18 14:26 penicillin G Allergy Intermediate RASH Verified 01/27/18 14:26 tetanus and diphtheria Allergy Intermediate RASH Verified 01/27/18 14:26 toxoids tetanus toxoid, adsorbed Allergy Intermediate RASH Verified 01/27/18 14:26 - Medications Medications: Current Medications Famotidine (Pepcid) 20 mg PO DAILY [facility] Last Admin: 01/28/18 11:23 Dose: 20 mg Fluticasone/Vilanterol (Breo Ellipta 100-25 Mcg Inh) 1 puff INH RQ24 [facility] Heparin Sodium (Porcine) (Heparin) 5,000 units SC Q8 [facility] Last Admin: 01/28/18 13:33 Dose: 5,000 units Ceftaroline Fosamil 600 mg/ (Sodium Chloride) 100 mls @ 100 mls/hr IVPB Q12H [facility]; Protocol Last Admin: 01/28/18 18:47 Dose: 100 mls/hr Loratadine (Claritin) 10 mg PO DAILY [facility] Last Admin: 01/28/18 11:22 Dose: 10 mg Montelukast Sodium (Singulair) 10 mg PO HS [facility] Last Admin: 01/27/18 22:02 Dose: 10 mg Results - Vital Signs Recent Vital Signs: Last Vital Signs Temp 97.8 F 01/28/18 15:00 Pulse 72 01/28/18 15:00 Resp 20 01/28/18 15:00 BP 123/73 01/28/18 15:00 Pulse Ox 98 01/28/18 15:00 - Labs Result Diagrams: 01/28/18 15:15 01/28/18 15:15 Labs: Laboratory Results - last 24 hr 01/28/18 01/28/18 15:15 15:15 WBC 8.0 RBC 4.64 Hgb 13.1 Hct 39.5 MCV 85.0 MCH 28.3 MCHC 33.3 RDW 15.2 H Plt Count 293 MPV 7.8 Neut % (Auto) 67.8 Lymph % (Auto) 18.4 L Eaton % (Auto) 6.7 Eos % (Auto) 6.4 H Baso % (Auto) 0.7 Neut # (Auto) 5.4 Lymph # (Auto) 1.5 Eaton # (Auto) 0.5 Eos # (Auto) 0.5 Baso # (Auto) 0.1 ESR 53 H Sodium 137 Potassium 4.4 Chloride 104 Carbon Dioxide 26 Anion Gap 11 BUN 14 Creatinine 0.7 L Est GFR ( Amer) > 60 Est GFR (Non-Af Amer) > 60 Random Glucose 120 H Calcium 8.9 Phosphorus 3.3 Magnesium 2.4 H Total Bilirubin 0.5 AST 14 L D ALT 22 Alkaline Phosphatase 84 C-Reactive Protein 166.10 H Total Protein 7.1 Albumin 3.8 Globulin 3.2 Albumin/Globulin Ratio 1.2
[2018-01-29] MEDS: Ceftaroline 600 MG in Sodium Chloride 0.9% 100 ML IVPB SCH ×2 (06:08→18:56)
[2018-01-29 08:36] LABS: BASO # 0.1 K/uL (0.0-0.2); BASO % 0.8 % (0.0-2.0); EOS # 0.4 K/uL (0.0-0.7); EOS % 5.3 % (0.0-4.0); HEMOGLOBIN 13.2 g/dL (12.0-18.0); LYMPH # 1.2 K/uL (1.0-4.3); LYMPH % 17.1 % (20.0-40.0); MEAN CELL VOLUME 84.5 fL (80.0-94.0); MEAN CORPUSCULAR HEMOGLOBIN 28.9 pg (27.0-31.0); MEAN CORPUSCULAR HGB CONC 34.2 g/dL (33.0-37.0); MEAN PLATELET VOLUME 7.7 fL (7.2-11.7); MONO # 0.5 K/uL (0.0-0.8); NEUT % 69.8 % (50.0-75.0); NRBC % 0.1 % (0.0-2.0); RBC 4.57 Mil/uL (4.40-5.90); RED CELL DISTRIBUTION WIDTH 15.3 % (11.5-14.5); WHITE BLOOD COUNT 7.2 K/uL (4.8-10.8)
[2018-01-29 08:51] LABS: ALB/GLOB RATIO 1.1 (1.0-2.1); ALBUMIN 3.7 g/dL (3.5-5.0); ALT/SGPT 19 U/L (21-72); AST/SGOT 11 U/L (17-59); BLOOD UREA NITROGEN 16 mg/dL (9-20); CALCIUM 8.9 mg/dl (8.6-10.4); GFR NON-AFRICAN AMERICAN > 60
--- NOTE | 2018-01-29 09:44 | CP.PCM.PN ---
Subjective - Date & Time of Evaluation Date of Evaluation: 01/29/18 Time of Evaluation: 09:42 - Subjective Subjective: Podiatry Progress Note for Dr. Medina 62 y/o male patient seen and evaluated at bedside for left fourth digit infection and plantar left foot ulceration. Patient is AAO x 3 and NAD, resting comfortably in bed at time of visit. Denies any pain, acute overnight events or new pedal complaints at this time. Patient states he would like to "save" his toe if possible. Denies any recent N/V/F/C/CP/SOB/D Objective - Vital Signs/Intake and Output Vital Signs (last 24 hours): Temp Pulse Resp BP Pulse Ox 97.9 F 73 20 138/83 98 01/29/18 08:37 01/29/18 08:37 01/29/18 08:37 01/29/18 08:37 01/29/18 08:37 Intake and Output: 01/29/18 01/29/18 06:59 18:59 Intake Total Balance - Medications Medications: Current Medications Famotidine (Pepcid) 20 mg PO DAILY [facility] Last Admin: 01/29/18 09:16 Dose: 20 mg Fluticasone/Vilanterol (Breo Ellipta 100-25 Mcg Inh) 1 puff INH RQ24 [facility] Heparin Sodium (Porcine) (Heparin) 5,000 units SC Q8 [facility] Last Admin: 01/29/18 06:07 Dose: 5,000 units Ceftaroline Fosamil 600 mg/ (Sodium Chloride) 100 mls @ 100 mls/hr IVPB Q12H [facility]; Protocol Last Admin: 01/29/18 06:08 Dose: 100 mls/hr Loratadine (Claritin) 10 mg PO DAILY [facility] Last Admin: 01/29/18 09:16 Dose: 10 mg Montelukast Sodium (Singulair) 10 mg PO HS [facility] Last Admin: 01/28/18 21:37 Dose: 10 mg - Labs Labs: 01/29/18 08:27 01/29/18 08:27 - Constitutional Appears: Well, Non-toxic, In Acute Distress - Extremities Exam Additional comments: L lower extremity focused examination: VASC: DP and PT unpalpable secondary to pitting edema, temperature warm to warm, CFT delayed, moderate swelling noted to the left foot specifically at left fourth digit which is noted to be highly edematous and erythematous with evidence of infection noted ORTHO: pain on palpation to the lateral forefoot, MM is 4/5 in all four compartments: dorsiflexion, planterflexion, eversion and inversion, AROM 1-5 present NEURO: gross sensation intact, protective sensation diminished DERM: ulceration at sub met 4 measuring approximately 1cm in diameter and probes to deep to bone, periwound is macerated and hyperkeratotic, depth measures approximately 1.5 cm, malodorous wound, minimal drainage noted during examination, erythema present, no streaking appreciated, undermining and tunneling noted. Deroofed blister noted to 4th digit with separation of epidermis-dermis junction, wound base is raw and granular, maceration noted in 3rd interspace and plantar aspect of 3rd and 4th digit. No fluctanace and abscess appreciated. - Neurological Exam Neurological Exam: Alert, Awake, Oriented x3 - Psychiatric Exam Psychiatric exam: Normal Affect, Normal Mood Assessment and Plan - Assessment and Plan (Free Text) Assessment: 62 y/o male seen and evaluated at bedside for left fourth digit infection and plantar left foot ulceration Plan: Patient seen and evaluated Plan discussed with Dr. Medina Afebrile, absent leukocytosis at this time Continue IV abx per ID as per Dr. Horn recommendation wound cx left foot- Beta Hemolytic Strep Group B, Coagulase Negative Staphylococcus L foot [id number] OM vs Charcot Bone Scan- Pending LE CT: gross distal left leg, ankle and foot cellulitis related to 4th digit soft tissues medially but without local significant jaqui changes at the 4th digit ESR- pending from 01/29/18 CRP- 69.70 Plan for incision and drainage of left fourth digit on Wednesday 01/31 pending OR availability with Dr. Medina Medical/cardiac clearance needed Wound dressed with betadine, DSD Podiatry will continue to follow while patient in house
[2018-01-29 17:04] LABS: ANTI SREPTOLYSIN O NEGATIVE (NEGATIVE)
[2018-01-30] MEDS: Ceftaroline 600 MG in Sodium Chloride 0.9% 100 ML IVPB SCH ×2 (06:07→18:59)
[2018-01-30 11:18] LABS: ANA PATTERN NUCLEOLAR
--- NOTE | 2018-01-30 12:23 | CARD ---
APPROVED REPORT Date of service: 01/27/2018 EKG Measurement Heart [id number] <Conclusion> Normal sinus rhythm Normal ECG
--- NOTE | 2018-01-30 19:19 | CP.PCM.PN ---
Subjective - Date & Time of Evaluation Date of Evaluation: 01/30/18 Time of Evaluation: 19:08 - Subjective Subjective: Podiatry Progress Note for Dr. Medina 62 y/o male patient seen and evaluated at bedside for left fourth digit infection and plantar left foot ulceration with attending Dr. Medina. Patient is AAO x 3 and NAD, resting in chair. Patient understands that tomorrow he will be going for a incision and drainage of left foot infection with possibility of 4th digit amputation. Denies any pain, acute overnight events or new pedal complaints at this time. Patient states he would like to "save" his toe if possible. Denies any recent N/V/F/C/CP/SOB/D Objective - Vital Signs/Intake and Output Vital Signs (last 24 hours): Temp Pulse Resp BP Pulse Ox 98 F 67 20 149/82 97 01/30/18 15:50 01/30/18 15:50 01/30/18 15:50 01/30/18 15:50 01/30/18 15:50 Intake and Output: 01/30/18 01/31/18 18:59 06:59 Intake Total 360 Balance 360 - Medications Medications: Current Medications Famotidine (Pepcid) 20 mg PO DAILY [facility] Last Admin: 01/30/18 10:17 Dose: 20 mg Fluticasone/Vilanterol (Breo Ellipta 100-25 Mcg Inh) 1 puff INH RQ24 [facility] Heparin Sodium (Porcine) (Heparin) 5,000 units SC Q8 [facility] Last Admin: 01/30/18 14:15 Dose: 5,000 units Heparin Sodium (Porcine) (Heparin) 1,000 units IVP ONCE [facility] Ceftaroline Fosamil 600 mg/ (Sodium Chloride) 100 mls @ 100 mls/hr IVPB Q12H [facility]; Protocol Last Admin: 01/30/18 18:59 Dose: 100 mls/hr Loratadine (Claritin) 10 mg PO DAILY [facility] Last Admin: 01/30/18 10:17 Dose: 10 mg Montelukast Sodium (Singulair) 10 mg PO HS [facility] Last Admin: 01/29/18 21:39 Dose: 10 mg - Labs Labs: 01/29/18 08:27 01/29/18 08:27 - Constitutional Appears: Well, Non-toxic, No Acute Distress - Extremities Exam Extremities Exam: absent: Calf Tenderness Additional comments: L lower extremity focused examination: VASC: DP and PT unpalpable secondary to pitting edema, temperature warm to warm, CFT delayed, moderate swelling noted to the left foot specifically at left fourth digit which is noted to be highly edematous and erythematous with evidence of infection noted Patient left lower extremity with increase swelling noted ORTHO: pain on palpation to the lateral forefoot, MM is 4/5 in all four compartments: dorsiflexion, planterflexion, eversion and inversion, AROM 1-5 present NEURO: gross sensation intact, protective sensation diminished DERM: ulceration at sub met 4 measuring approximately 1cm in diameter and prob es to deep to bone, periwound is macerated and hyperkeratotic, depth measures approximately 1.5 cm, malodorous wound, minimal drainage noted during examination, erythema present, no streaking appreciated, undermining and tunneling noted. Deroofed blister noted to 4th digit with separation of epidermis-dermis junction, wound base is raw and granular, maceration noted in 3rd interspace and plantar aspect of 3rd and 4th digit. No fluctanace and abscess appreciated. - Neurological Exam Neurological Exam: Alert, Awake, Oriented x3 - Psychiatric Exam Psychiatric exam: Normal Affect, Normal Mood Assessment and Plan - Assessment and Plan (Free Text) Assessment: 62 y/o male seen and evaluated at bedside for left fourth digit infection and plantar left foot ulceration Plan: Patient seen and evaluated Plan discussed with Dr. Medina Afebrile, absent leukocytosis at this time Continue IV abx per ID as per Dr. Horn recommendation wound cx left foot- Beta Hemolytic Strep Group B, Coagulase Negative Staphylococcus L foot [id number] OM vs Charcot Bone Scan- Pending LE CT: gross distal left leg, ankle and foot cellulitis related to 4th digit soft tissues medially but without local significant jaqui changes at the 4th digit ESR- pending from 01/29/18 CRP- 69.70 Patient to go to the OR tomorrow for incision and drainage of left foot ulceration with infection at 12:30PM with Dr. Medina Medical clearance needed, thank you Wound dressed with betadine, DSD Podiatry will continue to follow while patient in house
--- NOTE | 2018-01-30 20:51 | CP.PCM.PN ---
Subjective - Date & Time of Evaluation Date of Evaluation: 01/30/18 Time of Evaluation: 20:51 - Subjective Subjective: Patient is morning was sitting up. Comfortable. He has no pain. Today he was getting the nuclear scan for suspected osteomy latest. Patient is scheduled to have a surgical intervention incision and drainage possibly tomorrow On examination: Vital signs stable. Chest good air entry regular heart sound. Patient is left leg edema Labs reviewed Elevated CRP noted Renal functions are normal. We will get a chest x-ray today. Electrical cardioversion showing evidence of normal sinus rhythm. Labs otherwise nonspecific. Patient is medically stable for surgical procedure tomorrow. Will follow-up the patient. Currently patient is on antibiotic. Patient possibly has necrotizing ulcer of the left side little toe. Also suspected osteomy latest. CAT scan of the legs is showing chartcoat's joint. Objective - Vital Signs/Intake and Output Vital Signs (last 24 hours): Temp Pulse Resp BP Pulse Ox 98 F 67 20 149/82 97 01/30/18 15:50 01/30/18 15:50 01/30/18 15:50 01/30/18 15:50 01/30/18 15:50 Intake and Output: 01/30/18 01/31/18 18:59 06:59 Intake Total 360 Balance 360 - Medications Medications: Current Medications Famotidine (Pepcid) 20 mg PO DAILY [facility] Last Admin: 01/30/18 10:17 Dose: 20 mg Fluticasone/Vilanterol (Breo Ellipta 100-25 Mcg Inh) 1 puff INH RQ24 [facility] Heparin Sodium (Porcine) (Heparin) 5,000 units SC Q8 [facility] Last Admin: 01/30/18 14:15 Dose: 5,000 units Heparin Sodium (Porcine) (Heparin) 1,000 units IVP ONCE [facility] Ceftaroline Fosamil 600 mg/ (Sodium Chloride) 100 mls @ 100 mls/hr IVPB Q12H [facility]; Protocol Last Admin: 01/30/18 18:59 Dose: 100 mls/hr Loratadine (Claritin) 10 mg PO DAILY [facility] Last Admin: 01/30/18 10:17 Dose: 10 mg Montelukast Sodium (Singulair) 10 mg PO HS [facility] Last Admin: 01/29/18 21:39 Dose: 10 mg - Labs Labs: 01/29/18 08:27 01/29/18 08:27
[2018-01-31] MEDS: Ceftaroline 600 MG in Sodium Chloride 0.9% 100 ML IVPB SCH (06:34)
[2018-01-31] MEDS ORDERED: Lidocaine Hydrochloride 10 ML INJ ONE (11:01)
[2018-01-31] MEDS ORDERED: Bupivacaine 0.25% 20 ML INJ IJ ONE (11:02)
--- NOTE | 2018-01-31 11:02 | RAD ---
HISTORY: preop COMPARISON: Chest x-ray performed 08/23/17 TECHNIQUE: Chest, one view. FINDINGS: Examination limited by habitus. LUNGS: Mild pulmonary venous congestion. No focal consolidation. Scattered probable calcified granulomas. Please note that chest x-ray has limited sensitivity for the detection of pulmonary masses. PLEURA: No significant pleural effusion identified. No definite pneumothorax . CARDIOVASCULAR: Cardiomegaly. Atherosclerotic calcification present. OSSEOUS STRUCTURES: No acute osseous abnormality identified. VISUALIZED UPPER ABDOMEN: Unremarkable. OTHER FINDINGS: None. IMPRESSION: Cardiomegaly. Mild pulmonary venous congestion. Scattered probable calcified granulomas.
[2018-01-31] MEDS ORDERED: Propofol 10 mg/ml Inj (20 ML) ONE (11:30)
[2018-01-31] MEDS ORDERED: Midazolam 2 MG/2 ML VIAL ONE (11:30)
[2018-01-31 11:36] LABS: BASO # 0.1 K/uL (0.0-0.2); BASO % 0.8 % (0.0-2.0); EOS # 0.3 K/uL (0.0-0.7); EOS % 4.4 % (0.0-4.0); HEMOGLOBIN 13.2 g/dL (12.0-18.0); LYMPH # 1.6 K/uL (1.0-4.3); LYMPH % 22.5 % (20.0-40.0); MEAN CELL VOLUME 84.1 fL (80.0-94.0); MEAN CORPUSCULAR HEMOGLOBIN 28.2 pg (27.0-31.0); MEAN CORPUSCULAR HGB CONC 33.6 g/dL (33.0-37.0); MEAN PLATELET VOLUME 7.3 fL (7.2-11.7); MONO # 0.4 K/uL (0.0-0.8); MONO % 5.6 % (0.0-10.0); NEUT # 4.8 K/uL (1.8-7.0); NEUT % 66.7 % (50.0-75.0); NRBC % 0.1 % (0.0-2.0); RBC 4.69 Mil/uL (4.40-5.90); RED CELL DISTRIBUTION WIDTH 15.4 % (11.5-14.5); WHITE BLOOD COUNT 7.2 K/uL (4.8-10.8)
[2018-01-31 11:53] LABS: INR 1.2; PROTHROMBIN TIME 13.4 SECONDS (9.7-12.2)
[2018-01-31 11:59] LABS: BLOOD UREA NITROGEN 11 mg/dL (9-20); CALCIUM 9.1 mg/dl (8.6-10.4); GFR NON-AFRICAN AMERICAN > 60
[2018-01-31] MEDS ORDERED: Bacitracin 150,000 UNIT in Sodium Chloride 0.9% Irrig 3,000 ML IR SCH (12:30)
[2018-01-31] MEDS ORDERED: Oxycodone/Acetaminophen 5/325 mg Tab PO PRN ×2 (13:39)
[2018-01-31] MEDS ORDERED: HYDROmorphone 0.5 mg/0.5 ml ISec IVP PRN (13:41)
[2018-01-31] MEDS ORDERED: Lactated Ringer's 1,000 ML IV PRN (13:41)
--- NOTE | 2018-01-31 13:45 | PCM.SURG1 ---
Surgeon's Initial Post Op Note - Surgeon's Notes Surgeon: Dr. Farley, DPM Automatic Line Set Up Mechanic: Dr.Vrunda Peralta, PGY1, Dr. Xander Lyle, PGY2 Type of Anesthesia: IV Sedation, Local Anesthesia Administered By: Dr. Alas Pre-Operative Diagnosis: Left foot abscess with likely osteomyelitis of the 4th digit Operative Findings: see dictation. I: 20 cc 1:1 mixture of 1% Lidocaine plain and 0.25% Bupivicaine plain. M: 3-0 Prolene, 1/4 Iodoform Packing Post-Operative Diagnosis: same as above Operation Performed: Left foot incision and drainage wiht debridement of all non-viable softissue and bone and left foot 4th digit amputation Specimen/Specimens Removed: Left foot 4th digit Estimated Blood Loss: EBL {In ML}: 100 Blood Products Given: N/A Drains Used: No Drains Post-Op Condition: Good Date of Surgery/Procedure: 01/31/18 Time of Surgery/Procedure: 13:45
--- NOTE | 2018-01-31 15:18 | RAD ---
Date of service: 01/31/2018 PROCEDURE: Left Foot Radiographs. HISTORY: s/p left 4th digit amputation COMPARISON: 01/27/2018 FINDINGS: BONES: Interval 4th digit amputation distal to 4th metatarsal head. Prior 5th digit amputation status again noted. Interval increased lucency 3rd proximal phalanx bordering inter phalangeal joint. Interval nondisplaced fracture a consideration. Prominent trabecular markings are another consideration. Only noted on series 5542, image 1 The flattening 2nd metatarsal head appearance compatible with prior subchondral collapse here unchanged. The thick periosteal reaction cortical thickening smooth of the 4th metatarsal shaft is as before. Inferior calcaneal spurring. JOINTS: Disorganized tarsus and ankle with extensive hardware. Surrounding the hardware are multiple lucencies representing loosening and/or possible infection. These findings are similar to prior studies. Marked osseous disorganization in the tarsus ankle levels similar. Marked overlying soft tissue swelling. SOFT TISSUES: Normal. OTHER FINDINGS: None. IMPRESSION: Markedly disorganized and fragmented ossific debris ankle and tarsus and subtalar joints most notably affected. Appearance compatible with extensive neuropathic joint. Interval amputation of distal 4th digit as detailed above. Prior 5th digit amputation noted. Indeterminate findings on 1 image regarding the 3rd proximal phalanx. Prominent trabecular markings versus a subarticular nondisplaced fracture here is a consideration. No typical periosteal reaction here to suggest an osteomyelitis here is noted. However elsewhere with is marked soft tissue swelling and marked ossific disorganization-osteomyelitis along with a neuropathic joint cannot be excluded.
--- NOTE | 2018-01-31 17:45 | CP.PCM.PN ---
Subjective - Date & Time of Evaluation Date of Evaluation: 01/30/18 Time of Evaluation: 15:25 - Subjective Subjective: INFECTIOUS DISEASE PROGRESS NOTES MAXWELL HORN MD, FACP 01/30/2018 CHART REVIEWED PT EXAMINED CASE DISCUSSED 62 y/o male patient seen and evaluated at bedside for left fourth digit infection and plantar left foot ulceration with attending Dr. Medina. Patient is AAO x 3 and NAD, resting in chair. Patient understands that tomorrow he will be going for a incision and drainage of left foot infection with possibility of 4th digit amputation. Denies any pain, acute overnight events or new pedal complaints at this time. Patient states he would like to "save" his toe if possible. Denies any recent N/V/F/C/CP/SOB/D Objective - Vital Signs/Intake and Output Vital Signs (last 24 hours): Temp Pulse Resp BP Pulse Ox 98 F 67 20 149/82 97 01/30/18 15:50 01/30/18 15:50 01/30/18 15:50 01/30/18 15:50 01/30/18 15:50 Intake and Output: 01/30/18 01/31/18 18:59 06:59 Intake Total 360 Balance 360 - Medications Medications: Current Medications Famotidine (Pepcid) 20 mg PO DAILY [facility] Last Admin: 01/30/18 10:17 Dose: 20 mg Fluticasone/Vilanterol (Breo Ellipta 100-25 Mcg Inh) 1 puff INH RQ24 [facility] Heparin Sodium (Porcine) (Heparin) 5,000 units SC Q8 [facility] Last Admin: 01/30/18 14:15 Dose: 5,000 units Heparin Sodium (Porcine) (Heparin) 1,000 units IVP ONCE [facility] Ceftaroline Fosamil 600 mg/ (Sodium Chloride) 100 mls @ 100 mls/hr IVPB Q12H [facility]; Protocol Last Admin: 01/30/18 18:59 Dose: 100 mls/hr Loratadine (Claritin) 10 mg PO DAILY [facility] Last Admin: 01/30/18 10:17 Dose: 10 mg Montelukast Sodium (Singulair) 10 mg PO HS [facility] Last Admin: 01/29/18 21:39 Dose: 10 mg - Labs Labs: 01/29/18 08:27 01/29/18 08:27 - Constitutional Appears: Well, Non-toxic, No Acute Distress - Extremities Exam Extremities Exam: absent: Calf Tenderness Additional comments: L lower extremity focused examination: VASC: DP and PT unpalpable secondary to pitting edema, temperature warm to warm, CFT delayed, moderate swelling noted to the left foot specifically at left fourth digit which is noted to be highly edematous and erythematous with evidence of infection noted Patient left lower extremity with increase swelling noted ORTHO: pain on palpation to the lateral forefoot, MM is 4/5 in all four compartments: dorsiflexion, planterflexion, eversion and inversion, AROM 1-5 present NEURO: gross sensation intact, protective sensation diminished DERM: ulceration at sub met 4 measuring approximately 1cm in diameter and probes to deep to bone, periwound is macerated and hyperkeratotic, depth measures approximately 1.5 cm, malodorous wound, minimal drainage noted during examination, erythema present, no streaking appreciated, undermining and tunneling noted. Deroofed blister noted to 4th digit with separation of epidermis-dermis junction, wound base is raw and granular, maceration noted in 3rd interspace and plantar aspect of 3rd and 4th digit. No fluctanace and abscess appreciated. - Neurological Exam Neurological Exam: Alert, Awake, Oriented x3 - Psychiatric Exam Psychiatric exam: Normal Affect, Normal Mood Assessment and Plan - Assessment and Plan (Free Text) Assessment: 62 y/o male seen and evaluated at bedside for left fourth digit infection and plantar left foot ulceration Plan: Patient seen and evaluated Afebrile, absent leukocytosis at this time Continue IV abx per ID as per Dr. Horn recommendation wound cx left foot- Beta Hemolytic Strep Group B, Coagulase Negative Staphylococcus L foot [id number] OM vs Charcot Bone Scan- Pending LE CT: gross distal left leg, ankle and foot cellulitis related to 4th digit soft tissues medially but without local significant jaqui changes at the 4th digit ESR- pending from 01/29/18 CRP- 69.70 Objective - Vital Signs/Intake and Output Vital Signs (last 24 hours): Temp Pulse Resp BP Pulse Ox 97.6 F 68 12 128/67 96 01/31/18 14:15 01/31/18 14:15 01/31/18 14:15 01/31/18 14:15 01/31/18 14:15 Intake and Output: 01/31/18 01/31/18 06:59 18:59 Intake Total 100 200 Balance 100 200 - Medications Medications: Current Medications Acetaminophen (Tylenol 325mg Tab) 650 mg PO Q6 PRN PRN Reason: Pain, Mild (1-3) Famotidine (Pepcid) 20 mg PO DAILY [facility] Last Admin: 01/31/18 11:06 Dose: 20 mg Fluticasone/Vilanterol (Breo Ellipta 100-25 Mcg Inh) 1 puff INH RQ24 [facility] Heparin Sodium (Porcine) (Heparin) 5,000 units SC Q8 [facility] Last Admin: 01/30/18 14:15 Dose: 5,000 units Heparin Sodium (Porcine) (Heparin) 1,000 units IVP ONCE [facility] Hydromorphone HCl (Dilaudid) 0.5 mg IVP Q15M PRN PRN Reason: Pain, moderate (4-7) Ceftaroline Fosamil 600 mg/ (Sodium Chloride) 100 mls @ 100 mls/hr IVPB Q12H [facility]; Protocol Last Admin: 01/31/18 06:34 Dose: 100 mls/hr Lactated Ringer's (Lactated Ringer's) 1,000 mls @ 75 mls/hr IV .[id number] PRN PRN Reason: Hypotension Loratadine (Claritin) 10 mg PO DAILY [facility] Last Admin: 01/31/18 11:06 Dose: 10 mg Montelukast Sodium (Singulair) 10 mg PO HS [facility] Last Admin: 01/30/18 21:23 Dose: 10 mg Oxycodone/Acetaminophen (Percocet 5/325 Mg Tab) 1 tab PO Q6H PRN PRN Reason: Pain, moderate (4-7) Stop: 02/03/18 13:40 Oxycodone/Acetaminophen (Percocet 5/325 Mg Tab) 2 tab PO Q6H PRN PRN Reason: Pain, severe (8-10) Stop: 02/03/18 13:40 - Labs Labs: 01/31/18 11:31 01/31/18 11:31 PT 13.4 SECONDS (9.7-12.2) H 01/31/18 11:31 INR 1.2 01/31/18 11:31 APTT 29 SECONDS (21-34) 01/31/18 11:31
--- NOTE | 2018-01-31 17:48 | CP.PCM.PN ---
Subjective - Date & Time of Evaluation Date of Evaluation: 01/31/18 Time of Evaluation: 17:46 - Subjective Subjective: INFECTIOUS DISEASE PROGRESS NOTES MAXWELL JAIN MD,FACP 6T 177-B CHART REVIEWED PT EXAMINED CASE DISCUSSED S/P PODIATRIC SURGERY THIS AM ON HIS LEFT FOOT INDIUM BONE SCAN RESULTS PENDING(?) ON TEFLARO 600MG IVPG Q 12HRS TO RECHECK Objective - Vital Signs/Intake and Output Vital Signs (last 24 hours): Temp Pulse Resp BP Pulse Ox 97.6 F 68 12 128/67 96 01/31/18 14:15 01/31/18 14:15 01/31/18 14:15 01/31/18 14:15 01/31/18 14:15 Intake and Output: 01/31/18 01/31/18 06:59 18:59 Intake Total 100 200 Balance 100 200 - Medications Medications: Current Medications Acetaminophen (Tylenol 325mg Tab) 650 mg PO Q6 PRN PRN Reason: Pain, Mild (1-3) Famotidine (Pepcid) 20 mg PO DAILY [facility] Last Admin: 01/31/18 11:06 Dose: 20 mg Fluticasone/Vilanterol (Breo Ellipta 100-25 Mcg Inh) 1 puff INH RQ24 [facility] Heparin Sodium (Porcine) (Heparin) 5,000 units SC Q8 [facility] Last Admin: 01/30/18 14:15 Dose: 5,000 units Heparin Sodium (Porcine) (Heparin) 1,000 units IVP ONCE [facility] Hydromorphone HCl (Dilaudid) 0.5 mg IVP Q15M PRN PRN Reason: Pain, moderate (4-7) Ceftaroline Fosamil 600 mg/ (Sodium Chloride) 100 mls @ 100 mls/hr IVPB Q12H [facility]; Protocol Last Admin: 01/31/18 06:34 Dose: 100 mls/hr Lactated Ringer's (Lactated Ringer's) 1,000 mls @ 75 mls/hr IV .[id number] PRN PRN Reason: Hypotension Loratadine (Claritin) 10 mg PO DAILY [facility] Last Admin: 01/31/18 11:06 Dose: 10 mg Montelukast Sodium (Singulair) 10 mg PO HS [facility] Last Admin: 01/30/18 21:23 Dose: 10 mg Oxycodone/Acetaminophen (Percocet 5/325 Mg Tab) 1 tab PO Q6H PRN PRN Reason: Pain, moderate (4-7) Stop: 02/03/18 13:40 Oxycodone/Acetaminophen (Percocet 5/325 Mg Tab) 2 tab PO Q6H PRN PRN Reason: Pain, severe (8-10) Stop: 02/03/18 13:40 - Labs Labs: 01/31/18 11:31 01/31/18 11:31 PT 13.4 SECONDS (9.7-12.2) H 01/31/18 11:31 INR 1.2 01/31/18 11:31 APTT 29 SECONDS (21-34) 01/31/18 11:31
[2018-01-31 18:23] VITALS: RESP 20
--- NOTE | 2018-01-31 22:14 | CP.PCM.PN ---
Objective - Vital Signs/Intake and Output Vital Signs (last 24 hours): Temp Pulse Resp BP Pulse Ox 97.5 F L 68 20 121/74 96 01/31/18 15:10 01/31/18 15:10 01/31/18 15:10 01/31/18 15:10 01/31/18 15:10 Intake and Output: 01/31/18 02/01/18 18:59 06:59 Intake Total 200 Balance 200 - Medications Medications: Current Medications Acetaminophen (Tylenol 325mg Tab) 650 mg PO Q6 PRN PRN Reason: Pain, Mild (1-3) Famotidine (Pepcid) 20 mg PO DAILY [facility] Last Admin: 01/31/18 11:06 Dose: 20 mg Fluticasone/Vilanterol (Breo Ellipta 100-25 Mcg Inh) 1 puff INH RQ24 [facility] Heparin Sodium (Porcine) (Heparin) 5,000 units SC Q8 [facility] Last Admin: 01/30/18 14:15 Dose: 5,000 units Heparin Sodium (Porcine) (Heparin) 1,000 units IVP ONCE [facility] Hydromorphone HCl (Dilaudid) 0.5 mg IVP Q15M PRN PRN Reason: Pain, moderate (4-7) Lactated Ringer's (Lactated Ringer's) 1,000 mls @ 75 mls/hr IV .[id number] PRN PRN Reason: Hypotension Linezolid (Zyvox) 600 mg PO BID [facility]; Protocol Last Admin: 01/31/18 21:00 Dose: 600 mg Loratadine (Claritin) 10 mg PO DAILY [facility] Last Admin: 01/31/18 11:06 Dose: 10 mg Montelukast Sodium (Singulair) 10 mg PO HS [facility] Last Admin: 01/31/18 21:04 Dose: 10 mg Oxycodone/Acetaminophen (Percocet 5/325 Mg Tab) 1 tab PO Q6H PRN PRN Reason: Pain, moderate (4-7) Stop: 02/03/18 13:40 Last Admin: 01/31/18 22:10 Dose: 1 tab Oxycodone/Acetaminophen (Percocet 5/325 Mg Tab) 2 tab PO Q6H PRN PRN Reason: Pain, severe (8-10) Stop: 02/03/18 13:40 - Labs Labs: 01/31/18 11:31 01/31/18 11:31 PT 13.4 SECONDS (9.7-12.2) H 01/31/18 11:31 INR 1.2 01/31/18 11:31 APTT 29 SECONDS (21-34) 01/31/18 11:31
--- NOTE | 2018-02-01 13:42 | OP ---
PROCEDURE DATE: 01/31/2018 SURGEON: Iftikhar Fritz DPM. HOME ENERGY AUDITOR: Luz Peralta, PGY1, Dr. Xander Lyle DPM, PGY ANESTHESIOLOGIST: Dr. Alas. ANESTHESIA: IV sedation with local. PREOPERATIVE DIAGNOSIS: Left foot abscess with osteomyelitis of the fourth digit. POSTOPERATIVE DIAGNOSIS: Left foot abscess with osteomyelitis of the fourth digit. PROCEDURE: Incision and drainage of the left foot abscess with amputation of the left fourth digit. INDICATIONS: The patient is a 62-year-old male with the above diagnosis. The patient has exhausted all conservative treatment at this time and now requires surgical intervention. The patient signed the consent after careful explanation of risks, benefits, complications, and alternatives for surgical procedure. No guarantees were given nor implied. NPO status was confirmed prior to taking the patient to the OR. PREPARATION: The patient was brought into the operating room and placed on the operating room table in a supine position. A time-out was performed for identification of the correct patient and procedure. After induction of IV sedation, the patient received a total of 20 mL of 1:1 mixture of 0.25% Marcaine plain and 1% lidocaine plain in a local reverse Alfaro type fashion of the left fourth metatarsal. The left foot was then prepped and draped in a normal sterile manner, and the procedure began. No tourniquet was used during the procedure. DESCRIPTION OF PROCEDURE: Attention was then drawn to the dorsal aspect of the left fourth digit where a rocket type incision was made at the level of the fourth metatarsophalangeal joint extending plantarly out the fourth metatarsal using a #15 blade. The incision was then extended down through the subcutaneous layers down to the level of the bone. Using a bone clamp to stabilize the toe, the fourth digit was then disarticulated from the foot at the level of the metatarsophalangeal joint and passed from the operative field and sent for path. Using a fresh #15 blade, the subcutaneous tissue was debulked and all necrotic tissue was debrided. Next, the surgical site was copiously flushed with sterile saline. A deep wound culture was taken at this time. Last, #3-0 Prolene was used to reapproximate the skin edges in a double end over suture method. The plantar wound was packed with #4 iodoform packing. The incision site was then dressed with Xeroform, 4 x 4, Kerlix, and a light Seven bandage. POSTOPERATIVE CONDITION: The patient tolerated the anesthesia and procedure well and was escorted to the recovery room with vital signs stable and neurovascular status intact to the left foot. The patient will be nonweightbearing at this time. Podiatry will continue to follow the patient while he remains inhouse. Will await results of wound culture. Luz Peralta MD Iftikhar Fritz DPM [id number]
--- NOTE | 2018-02-01 16:16 | RAD ---
Date of service: 02/01/2018 HISTORY: verify right PICC COMPARISON: No prior. FINDINGS: LUNGS: No active pulmonary disease. PLEURA: No significant pleural effusion identified, no pneumothorax apparent. CARDIOVASCULAR: No aortic atherosclerotic calcification present. Normal cardiac size. No congestive change. New right PICC catheter terminates in the region of the SVC. OSSEOUS STRUCTURES: No significant abnormalities. VISUALIZED UPPER ABDOMEN: Normal. OTHER FINDINGS: None. IMPRESSION: New right PICC catheter terminates in the region of the SVC. Otherwise unremarkable.
--- NOTE | 2018-02-01 17:37 | CP.PCM.PN ---
Subjective - Date & Time of Evaluation Date of Evaluation: 02/01/18 Time of Evaluation: 17:35 - Subjective Subjective: 62 y/o male patient seen and evaluated POD #1 left foot 4th digit amputation. Patient seen resting comfortably and in no acute distress. Patient denies any other complaints at this time. Objective - Vital Signs/Intake and Output Vital Signs (last 24 hours): Temp Pulse Resp BP Pulse Ox 97.8 F 66 20 109/71 96 02/01/18 15:18 02/01/18 15:18 02/01/18 15:18 02/01/18 15:18 02/01/18 15:18 Intake and Output: 02/01/18 02/01/18 06:59 18:59 Intake Total 100 Balance 100 - Medications Medications: Current Medications Acetaminophen (Tylenol 325mg Tab) 650 mg PO Q6 PRN PRN Reason: Pain, Mild (1-3) Famotidine (Pepcid) 20 mg PO DAILY [facility] Last Admin: 02/01/18 09:23 Dose: 20 mg Fluticasone/Vilanterol (Breo Ellipta 100-25 Mcg Inh) 1 puff INH RQ24 [facility] Heparin Sodium (Porcine) (Heparin) 5,000 units SC Q8 [facility] Last Admin: 01/30/18 14:15 Dose: 5,000 units Heparin Sodium (Porcine) (Heparin) 1,000 units IVP ONCE [facility] Hydromorphone HCl (Dilaudid) 0.5 mg IVP Q15M PRN PRN Reason: Pain, moderate (4-7) Lactated Ringer's (Lactated Ringer's) 1,000 mls @ 75 mls/hr IV .[id number] PRN PRN Reason: Hypotension Ceftaroline Fosamil 600 mg/ (Sodium Chloride) 100 mls @ 100 mls/hr IVPB Q12H [facility]; Protocol Loratadine (Claritin) 10 mg PO DAILY [facility] Last Admin: 02/01/18 09:23 Dose: 10 mg Montelukast Sodium (Singulair) 10 mg PO HS [facility] Last Admin: 01/31/18 21:04 Dose: 10 mg Oxycodone/Acetaminophen (Percocet 5/325 Mg Tab) 1 tab PO Q6H PRN PRN Reason: Pain, moderate (4-7) Stop: 02/03/18 13:40 Last Admin: 01/31/18 22:10 Dose: 1 tab Oxycodone/Acetaminophen (Percocet 5/325 Mg Tab) 2 tab PO Q6H PRN PRN Reason: Pain, severe (8-10) Stop: 02/03/18 13:40 - Labs Labs: 01/31/18 11:31 01/31/18 11:31 PT 13.4 SECONDS (9.7-12.2) H 01/31/18 11:31 INR 1.2 01/31/18 11:31 APTT 29 SECONDS (21-34) 01/31/18 11:31 - Constitutional Appears: Well, Non-toxic, No Acute Distress - Head Exam Head Exam: ATRAUMATIC, NORMOCEPHALIC - Extremities Exam Additional comments: L lower extremity focused examination: VASC: DP and PT palpable , temperature warm to warm, CFT delayed, moderate- severe edema noted to the left foot ORTHO: pain on palpation to the lateral forefoot, MM is 4/5 in all four compartments: dorsiflexion, planterflexion, eversion and inversion, AROM 1-5 present NEURO: gross sensation intact, protective sensation diminished DERM: skin incision noted to the left foot, sutures well-coapted, moderate sa nguinous drainage noted to the dressing, no malodor, no signs of dehiscence at this time - Neurological Exam Neurological Exam: Alert, Awake, Oriented x3 - Psychiatric Exam Psychiatric exam: Normal Affect, Normal Mood Assessment and Plan - Assessment and Plan (Free Text) Assessment: 62 y/o male POD#1 Left 4th digit amputation Plan: Patient seen and evaluated at bedside Chart, labs and vitals reviewed Plan discussed with Dr. Farley wound cx left foot- Beta Hemolytic Strep Group B, Coagulase Negative Staphylococcus L foot [id number] OM vs Charcot Bone Scan- Pending LE CT: gross distal left leg, ankle and foot cellulitis related to 4th digit soft tissues medially but without local significant jaqui changes at the 4th digit ESR- pending from 01/29/18 CRP- 69.70 In OR_ Left 4th digit sent to pathology for evaluation Wound culture taken in the OR of left foot 4th digit Patient to NWB to left with assistance device as needed Keep dressing clean, dry and intact May reinforce with dsd if necessary Continue IV abx per ID as per Dr. Horn recommendation wound cx left foot- Beta Hemolytic Strep Group B, Coagulase Negative Staphylococcus L foot [id number] OM vs Charcot Bone Scan- Pending LE CT: gross distal left leg, ankle and foot cellulitis related to 4th digit soft tissues medially but without local significant jaqui changes at the 4th digit ESR- pending from 01/29/18 CRP- 69.70 Podiatry will continue to follow patient while in [facility]
[2018-02-01] MEDS: Ceftaroline 600 MG in Sodium Chloride 0.9% 100 ML IVPB SCH (18:34)
[2018-02-02] MEDS: Ceftaroline 600 MG in Sodium Chloride 0.9% 100 ML IVPB SCH ×2 (05:25→17:30)
--- NOTE | 2018-02-02 11:40 | VASCLAB ---
Date of service: 01/28/2018 STUDY DESCRIPTION: Lower Extremity Arterial Exam (PVR). HISTORY: PVD Left foot cellulitis/Ulceration, Severe left leg Lymphedema. PRIORS: None. TECHNIQUE: Pulse volume recording waveforms and segmental pressures of bilateral lower extremities at multiple levels were obtained. Ankle Brachial Indices (ABIs) were calculated. Report prepared by Cayden Carreno RVT RIGHT LOWER EXTREMITY: * Brachial artery: Pressure - 123 mmHg. * High thigh: Pressure - 138 mmHg: Ratio - 1.07: PVR waveform - Pulsatile * Low thigh: Pressure - mmHg: Ratio - PVR waveform: Pulsatile * Calf: Pressure - 146 mmHg: Ratio - 1.13 PVR waveform: Pulsatile * Posterior tibial Artery: Pressure - 176 mmHg: Ratio - 1.36 PVR waveform: Pulsatile * Dorsalis pedis Artery: Pressure - 165 mmHg: Ratio - 1.28 PVR waveform: Pulsatile * Great toe: Pressure - 70 mmHg: Ratio - 0.54 PVR waveform: Pulsatile Ankle brachial index (YELENA): 1.36 LEFT LOWER EXTREMITY: * Brachial artery: Pressure - 129 mmHg. * High thigh: Pressure - 140 mmHg: Ratio - 1.09: PVR waveform - Pulsatile * Low thigh: Pressure - mmHg: Ratio - PVR waveform: Pulsatile * Calf: Pressure - 133 mmHg: Ratio - 1.03 PVR waveform: Pulsatile * Posterior tibial Artery: Pressure - 163 mmHg: Ratio - 1.26 PVR waveform: Pulsatile * Dorsalis pedis Artery: Pressure - 173 mmHg: Ratio - 1.34 PVR waveform: Pulsatile * Great toe: Pressure - 99 mmHg: Ratio - 0.77 PVR waveform: Pulsatile Ankle brachial index (YELENA): 1.34 OTHER FINDINGS: Right: There was no evidence of hemodynamically significant arterial insufficiency in the right lower extremity. Left: There was no evidence of hemodynamically significant arterial insufficiency in the left lower extremity. IMPRESSION: No dynamically significant hemodynamic stenosis/occlusion identified. Correlation with ultrasound or CT angiogram the lower extremities recommended.
--- NOTE | 2018-02-02 11:50 | CP.PCM.PN ---
Subjective - Date & Time of Evaluation Date of Evaluation: 02/01/18 Time of Evaluation: 16:20 - Subjective Subjective: INFECTIOUS DISEASE PROGRESS NOTES MAXWELL JAIN MD, FACP 02/01/2018 6T 667-B CHART REVIEWED EXAMIN NOTED CASE DISCUSSED WITH RN AND ORDERS GIVEN Chart, labs and vitals reviewed Plan discussed with BODY MAKE UP ARTIST wound cx left foot- Beta Hemolytic Strep Group B, Coagulase Negative Staphylococcus L foot [id number] OM vs Charcot Bone Scan- STILL Pending LE CT: gross distal left leg, ankle and foot cellulitis related to 4th digit soft tissues medially but without local significant jaqui changes at the 4th digit ESR- pending from 01/29/18 CRP- 69.70 In OR_ Left 4th digit sent to pathology for evaluation Wound culture taken in the OR of left foot 4th digit Patient to NWB to left with assistance device as needed Keep dressing clean, dry and intact May reinforce with dsd if necessary Continue IV abx FOR 6 WEEKS wound cx left foot- Beta Hemolytic Strep Group B, Coagulase Negative Staphylococcus L foot [id number] OM vs Charcot Bone Scan- Pending LE CT: gross distal left leg, ankle and foot cellulitis related to 4th digit soft tissues medially but without local significant jaqui changes at the 4th digit ESR- pending from 01/29/18 CRP- 69.70 THE OBVIOUS ID PALN IS TO TREAT FOR INSIDIOUS INFECTION IN A FOOT WITH DOCUMENTED CHARCOT JOINT AND NUMEROUS PREVIOUS SURGERIES AND HARDWEAR... ERGO AND HENCE THE TREATMENT LENGTH IS A MINIUM OF 6 WEEKS, MANAGED BY ID EXPERTISE... CONTINUE TEFLARO 600MG IVPB Q 6 HOURS... MAXWELL JAIN MD, FACP Objective - Vital Signs/Intake and Output Vital Signs (last 24 hours): Temp Pulse Resp BP Pulse Ox 98.1 F 75 20 130/70 94 L 02/02/18 08:30 02/02/18 08:30 02/02/18 08:30 02/02/18 08:30 02/02/18 08:30 - Medications Medications: Current Medications Acetaminophen (Tylenol 325mg Tab) 650 mg PO Q6 PRN PRN Reason: Pain, Mild (1-3) Famotidine (Pepcid) 20 mg PO DAILY [facility] Last Admin: 02/02/18 11:39 Dose: 20 mg Fluticasone/Vilanterol (Breo Ellipta 100-25 Mcg Inh) 1 puff INH RQ24 [facility] Heparin Sodium (Porcine) (Heparin) 5,000 units SC Q8 [facility] Last Admin: 01/30/18 14:15 Dose: 5,000 units Hydromorphone HCl (Dilaudid) 0.5 mg IVP Q15M PRN PRN Reason: Pain, moderate (4-7) Lactated Ringer's (Lactated Ringer's) 1,000 mls @ 75 mls/hr IV .[id number] PRN PRN Reason: Hypotension Ceftaroline Fosamil 600 mg/ (Sodium Chloride) 100 mls @ 100 mls/hr IVPB Q12H [facility]; Protocol Last Admin: 02/02/18 05:25 Dose: 100 mls/hr Loratadine (Claritin) 10 mg PO DAILY [facility] Last Admin: 02/02/18 11:39 Dose: 10 mg Montelukast Sodium (Singulair) 10 mg PO HS [facility] Last Admin: 02/01/18 22:22 Dose: 10 mg Oxycodone/Acetaminophen (Percocet 5/325 Mg Tab) 1 tab PO Q6H PRN PRN Reason: Pain, moderate (4-7) Stop: 02/03/18 13:40 Last Admin: 01/31/18 22:10 Dose: 1 tab Oxycodone/Acetaminophen (Percocet 5/325 Mg Tab) 2 tab PO Q6H PRN PRN Reason: Pain, severe (8-10) Stop: 02/03/18 13:40 - Labs Labs: 01/31/18 11:31 01/31/18 11:31 PT 13.4 SECONDS (9.7-12.2) H 01/31/18 11:31 INR 1.2 01/31/18 11:31 APTT 29 SECONDS (21-34) 01/31/18 11:31
--- NOTE | 2018-02-02 11:57 | CP.PCM.PN ---
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 CASE MANAGEMENT AND SOCIAL WORKERS TO PICK HOME HEALTH CARE [facility] FOR HOME [facility]ARE. MY ORDRERS WILL BE GIVEN DIRECTLY, WHEN READY AND ASKED. WILL NEED WEEKLY CBC C DIFF, ESR,PLATLETS AND CMP. PT TO SEE ME WEEKLY THANK YOU. MAXWELL JAIN MD, FACP [phone] Objective - Vital Signs/Intake and Output Vital Signs (last 24 hours): Temp Pulse Resp BP Pulse Ox 98.1 F 75 20 130/70 94 L 02/02/18 08:30 02/02/18 08:30 02/02/18 08:30 02/02/18 08:30 02/02/18 08:30 - Medications Medications: Current Medications Acetaminophen (Tylenol 325mg Tab) 650 mg PO Q6 PRN PRN Reason: Pain, Mild (1-3) Famotidine (Pepcid) 20 mg PO DAILY [facility] Last Admin: 02/02/18 11:39 Dose: 20 mg Fluticasone/Vilanterol (Breo Ellipta 100-25 Mcg Inh) 1 puff INH RQ24 [facility] Heparin Sodium (Porcine) (Heparin) 5,000 units SC Q8 [facility] Last Admin: 01/30/18 14:15 Dose: 5,000 units Hydromorphone HCl (Dilaudid) 0.5 mg IVP Q15M PRN PRN Reason: Pain, moderate (4-7) Lactated Ringer's (Lactated Ringer's) 1,000 mls @ 75 mls/hr IV .[id number] PRN PRN Reason: Hypotension Ceftaroline Fosamil 600 mg/ (Sodium Chloride) 100 mls @ 100 mls/hr IVPB Q12H [facility]; Protocol Last Admin: 02/02/18 05:25 Dose: 100 mls/hr Loratadine (Claritin) 10 mg PO DAILY [facility] Last Admin: 02/02/18 11:39 Dose: 10 mg Montelukast Sodium (Singulair) 10 mg PO HS [facility] Last Admin: 02/01/18 22:22 Dose: 10 mg Oxycodone/Acetaminophen (Percocet 5/325 Mg Tab) 1 tab PO Q6H PRN PRN Reason: Pain, moderate (4-7) Stop: 02/03/18 13:40 Last Admin: 01/31/18 22:10 Dose: 1 tab Oxycodone/Acetaminophen (Percocet 5/325 Mg Tab) 2 tab PO Q6H PRN PRN Reason: Pain, severe (8-10) Stop: 02/03/18 13:40 - Labs Labs: 01/31/18 11:31 01/31/18 11:31 PT 13.4 SECONDS (9.7-12.2) H 01/31/18 11:31 INR 1.2 01/31/18 11:31 APTT 29 SECONDS (21-34) 01/31/18 11:31
[2018-02-02 12:46] LABS: BASO # 0.1 K/uL (0.0-0.2); LYMPH # 1.1 K/uL (1.0-4.3); MEAN PLATELET VOLUME 7.8 fL (7.2-11.7); MONO # 0.4 K/uL (0.0-0.8); NEUT # 4.7 K/uL (1.8-7.0); RBC 4.07 Mil/uL (4.40-5.90); WHITE BLOOD COUNT 6.6 K/uL (4.8-10.8)
[2018-02-02 12:52] LABS: EOS # 0.3 K/uL (0.0-0.7); EOS % 4.8 % (0.0-4.0); HEMOGLOBIN 11.6 g/dL (12.0-18.0); LYMPH % 16.9 % (20.0-40.0); MEAN CELL VOLUME 84.2 fL (80.0-94.0); MEAN CORPUSCULAR HEMOGLOBIN 28.4 pg (27.0-31.0); MEAN CORPUSCULAR HGB CONC 33.8 g/dL (33.0-37.0); MONO % 5.5 % (0.0-10.0); NEUT % 71.8 % (50.0-75.0); RED CELL DISTRIBUTION WIDTH 15.1 % (11.5-14.5)
[2018-02-02 13:26] LABS: ALB/GLOB RATIO 1.1 (1.0-2.1); ALBUMIN 3.1 g/dL (3.5-5.0); ALT/SGPT 29 U/L (21-72); AST/SGOT 35 U/L (17-59); BLOOD UREA NITROGEN 15 mg/dL (9-20); CALCIUM 8.3 mg/dl (8.6-10.4); GFR NON-AFRICAN AMERICAN > 60
--- NOTE | 2018-02-02 17:37 | CP.PCM.PN ---
Subjective - Date & Time of Evaluation Date of Evaluation: 02/02/18 Time of Evaluation: 17:36 Objective - Vital Signs/Intake and Output Vital Signs (last 24 hours): Temp Pulse Resp BP Pulse Ox 97.8 F 65 20 136/76 96 02/02/18 15:05 02/02/18 15:05 02/02/18 15:05 02/02/18 15:05 02/02/18 15:05 - Medications Medications: Current Medications Acetaminophen (Tylenol 325mg Tab) 650 mg PO Q6 PRN PRN Reason: Pain, Mild (1-3) Famotidine (Pepcid) 20 mg PO DAILY [facility] Last Admin: 02/02/18 11:39 Dose: 20 mg Fluticasone/Vilanterol (Breo Ellipta 100-25 Mcg Inh) 1 puff INH RQ24 [facility] Heparin Sodium (Porcine) (Heparin) 5,000 units SC Q8 [facility] Last Admin: 01/30/18 14:15 Dose: 5,000 units Hydromorphone HCl (Dilaudid) 0.5 mg IVP Q15M PRN PRN Reason: Pain, moderate (4-7) Lactated Ringer's (Lactated Ringer's) 1,000 mls @ 75 mls/hr IV .[id number] PRN PRN Reason: Hypotension Ceftaroline Fosamil 600 mg/ (Sodium Chloride) 100 mls @ 100 mls/hr IVPB Q12H [facility]; Protocol Last Admin: 02/02/18 17:30 Dose: 100 mls/hr Loratadine (Claritin) 10 mg PO DAILY [facility] Last Admin: 02/02/18 11:39 Dose: 10 mg Montelukast Sodium (Singulair) 10 mg PO HS [facility] Last Admin: 02/01/18 22:22 Dose: 10 mg Oxycodone/Acetaminophen (Percocet 5/325 Mg Tab) 1 tab PO Q6H PRN PRN Reason: Pain, moderate (4-7) Stop: 02/03/18 13:40 Last Admin: 01/31/18 22:10 Dose: 1 tab Oxycodone/Acetaminophen (Percocet 5/325 Mg Tab) 2 tab PO Q6H PRN PRN Reason: Pain, severe (8-10) Stop: 02/03/18 13:40 - Labs Labs: 02/02/18 12:37 02/02/18 12:37 PT 13.4 SECONDS (9.7-12.2) H 01/31/18 11:31 INR 1.2 01/31/18 11:31 APTT 29 SECONDS (21-34) 01/31/18 11:31
--- NOTE | 2018-02-02 18:59 | CP.PCM.PN ---
Subjective - Date & Time of Evaluation Date of Evaluation: 02/02/18 Time of Evaluation: 18:59 - Subjective Subjective: Podiatry progress note fro Dr. Farley 62 y/o male patient seen and evaluated POD #2 left foot 4th digit amputation. Patient seen resting comfortably and in no acute distress. Patient denies any other complaints at this time. Patient successfully received a PICC line yesterday. Patient reports he would like to be discharged at this time and has [facility] support for wound care dressing changes. Objective - Vital Signs/Intake and Output Vital Signs (last 24 hours): Temp Pulse Resp BP Pulse Ox 97.8 F 65 20 136/76 96 02/02/18 15:05 02/02/18 15:05 02/02/18 15:05 02/02/18 15:05 02/02/18 15:05 - Medications Medications: Current Medications Acetaminophen (Tylenol 325mg Tab) 650 mg PO Q6 PRN PRN Reason: Pain, Mild (1-3) Famotidine (Pepcid) 20 mg PO DAILY [facility] Last Admin: 02/02/18 11:39 Dose: 20 mg Fluticasone/Vilanterol (Breo Ellipta 100-25 Mcg Inh) 1 puff INH RQ24 [facility] Heparin Sodium (Porcine) (Heparin) 5,000 units SC Q8 [facility] Last Admin: 01/30/18 14:15 Dose: 5,000 units Hydromorphone HCl (Dilaudid) 0.5 mg IVP Q15M PRN PRN Reason: Pain, moderate (4-7) Lactated Ringer's (Lactated Ringer's) 1,000 mls @ 75 mls/hr IV .[id number] PRN PRN Reason: Hypotension Ceftaroline Fosamil 600 mg/ (Sodium Chloride) 100 mls @ 100 mls/hr IVPB Q12H [facility]; Protocol Last Admin: 02/02/18 17:30 Dose: 100 mls/hr Loratadine (Claritin) 10 mg PO DAILY [facility] Last Admin: 02/02/18 11:39 Dose: 10 mg Montelukast Sodium (Singulair) 10 mg PO HS [facility] Last Admin: 02/01/18 22:22 Dose: 10 mg Oxycodone/Acetaminophen (Percocet 5/325 Mg Tab) 1 tab PO Q6H PRN PRN Reason: Pain, moderate (4-7) Stop: 02/03/18 13:40 Last Admin: 01/31/18 22:10 Dose: 1 tab Oxycodone/Acetaminophen (Percocet 5/325 Mg Tab) 2 tab PO Q6H PRN PRN Reason: Pain, severe (8-10) Stop: 02/03/18 13:40 - Labs Labs: 02/02/18 12:37 02/02/18 12:37 PT 13.4 SECONDS (9.7-12.2) H 01/31/18 11:31 INR 1.2 01/31/18 11:31 APTT 29 SECONDS (21-34) 01/31/18 11:31 - Constitutional Appears: Well, Non-toxic, No Acute Distress - Head Exam Head Exam: ATRAUMATIC, NORMOCEPHALIC - Extremities Exam Additional comments: L lower extremity focused examination: VASC: DP and PT palpable , temperature warm to warm, CFT delayed, moderate- severe edema noted to the left foot ORTHO: pain on palpation to the lateral forefoot, MM is 4/5 in all four compartments: dorsiflexion, planterflexion, eversion and inversion, AROM 1-5 present NEURO: gross sensation intact, protective sensation diminished DERM: skin incision noted to the left foot, sutures well-coapted, moderate sanguinous drainage noted to the dressing, no malodor, no signs of dehiscence at this time - Neurological Exam Neurological Exam: Alert, Awake - Psychiatric Exam Psychiatric exam: Normal Affect. absent: Normal Mood Assessment and Plan - Assessment and Plan (Free Text) Assessment: 62 y/o male POD#2 Left 4th digit amputation Plan: Patient seen and evaluated at bedside Chart, labs and vitals reviewed- patient afebrile and absent leukocytosis at this time Plan discussed with Dr. Farley Wound cx left foot- Beta Hemolytic Strep Group B, Coagulase Negative Staphylococcus LE CT: gross distal left leg, ankle and foot cellulitis related to 4th digit sof t tissues medially but without local significant jaqui changes at the 4th digit OR Wound Culture- Gram Positive Cocci Patient to NWB to left with assistance device as needed- Keep dressing clean, dry and intact Continue IV abx per ID as per Dr. Horn recommendation- patient received PICC line and will be discharged home with Abx protocol for further treatment Podiatry Wound Care- 1/4 inch iodoform packing to the plantar wound, xeroform to the incision, and gauze, and kerlix Wound was dressed as mentioned above Patient is stable for discharge from Podiatry standpoint, patient will follow up with Dr. Farley in his office Podiatry will continue to follow patient while in house
[2018-02-03] MEDS: Ceftaroline 600 MG in Sodium Chloride 0.9% 100 ML IVPB SCH (05:10)
[2018-02-03 07:32] LABS: BASO % 0.7 % (0.0-2.0); EOS # 0.4 K/uL (0.0-0.7); EOS % 5.6 % (0.0-4.0); HEMOGLOBIN 11.6 g/dL (12.0-18.0); LYMPH # 1.1 K/uL (1.0-4.3); LYMPH % 16.5 % (20.0-40.0); MEAN CELL VOLUME 84.6 fL (80.0-94.0); MEAN CORPUSCULAR HEMOGLOBIN 28.7 pg (27.0-31.0); MEAN CORPUSCULAR HGB CONC 33.9 g/dL (33.0-37.0); MEAN PLATELET VOLUME 7.4 fL (7.2-11.7); MONO # 0.5 K/uL (0.0-0.8); MONO % 7.8 % (0.0-10.0); NEUT # 4.5 K/uL (1.8-7.0); NEUT % 69.4 % (50.0-75.0); RBC 4.06 Mil/uL (4.40-5.90); RED CELL DISTRIBUTION WIDTH 15.5 % (11.5-14.5); WHITE BLOOD COUNT 6.5 K/uL (4.8-10.8)
[2018-02-03 08:02] LABS: ALB/GLOB RATIO 1.1 (1.0-2.1); ALBUMIN 3.3 g/dL (3.5-5.0); ALT/SGPT 34 U/L (21-72); AST/SGOT 26 U/L (17-59); BLOOD UREA NITROGEN 16 mg/dL (9-20); CALCIUM 8.7 mg/dl (8.6-10.4); GFR NON-AFRICAN AMERICAN > 60
--- NOTE | 2018-02-03 08:31 | CP.PCM.PN ---
Subjective - Date & Time of Evaluation Date of Evaluation: 02/03/18 Time of Evaluation: 08:29 - Subjective Subjective: Podiatry progress note fro Dr. Farley 62 y/o male patient seen and evaluated POD #3 left foot 4th digit amputation. Patient seen resting comfortably and in no acute distress. Patient denies any other complaints at this time. Patient successfully received a PICC. Patient reports he would like to be discharged at this time and has family support for wound care dressing changes. Objective - Vital Signs/Intake and Output Vital Signs (last 24 hours): Temp Pulse Resp BP Pulse Ox 98.0 F 67 20 120/69 97 02/02/18 23:00 02/02/18 23:00 02/02/18 23:00 02/02/18 23:00 02/02/18 23:00 Intake and Output: 02/03/18 02/03/18 06:59 18:59 Intake Total 350 Balance 350 - Medications Medications: Current Medications Acetaminophen (Tylenol 325mg Tab) 650 mg PO Q6 PRN PRN Reason: Pain, Mild (1-3) Famotidine (Pepcid) 20 mg PO DAILY [facility] Last Admin: 02/02/18 11:39 Dose: 20 mg Fluticasone/Vilanterol (Breo Ellipta 100-25 Mcg Inh) 1 puff INH RQ24 [facility] Heparin Sodium (Porcine) (Heparin) 5,000 units SC Q8 [facility] Last Admin: 01/30/18 14:15 Dose: 5,000 units Hydromorphone HCl (Dilaudid) 0.5 mg IVP Q15M PRN PRN Reason: Pain, moderate (4-7) Lactated Ringer's (Lactated Ringer's) 1,000 mls @ 75 mls/hr IV .[id number] PRN PRN Reason: Hypotension Ceftaroline Fosamil 600 mg/ (Sodium Chloride) 100 mls @ 100 mls/hr IVPB Q12H [facility]; Protocol Last Admin: 02/03/18 05:10 Dose: 100 mls/hr Loratadine (Claritin) 10 mg PO DAILY [facility] Last Admin: 02/02/18 11:39 Dose: 10 mg Montelukast Sodium (Singulair) 10 mg PO HS [facility] Last Admin: 02/02/18 21:34 Dose: 10 mg Oxycodone/Acetaminophen (Percocet 5/325 Mg Tab) 1 tab PO Q6H PRN PRN Reason: Pain, moderate (4-7) Stop: 02/03/18 13:40 Last Admin: 01/31/18 22:10 Dose: 1 tab Oxycodone/Acetaminophen (Percocet 5/325 Mg Tab) 2 tab PO Q6H PRN PRN Reason: Pain, severe (8-10) Stop: 02/03/18 13:40 - Labs Labs: 02/03/18 07:21 02/03/18 07:21 PT 13.4 SECONDS (9.7-12.2) H 01/31/18 11:31 INR 1.2 01/31/18 11:31 APTT 29 SECONDS (21-34) 01/31/18 11:31 - Constitutional Appears: Well, Non-toxic, No Acute Distress - Head Exam Head Exam: ATRAUMATIC, NORMOCEPHALIC - Extremities Exam Additional comments: L lower extremity focused examination: VASC: DP and PT palpable , temperature warm to warm, CFT delayed, moderate- severe edema noted to the left foot ORTHO: pain on palpation to the lateral forefoot, MM is 4/5 in all four compartments: dorsiflexion, planterflexion, eversion and inversion, AROM 1-5 present NEURO: gross sensation intact, protective sensation diminished DERM: skin incision noted to the left foot, sutures well-coapted, minimal sanguinous drainage noted to the dressing, no malodor, no signs of dehiscence at this time - Neurological Exam Neurological Exam: Alert, Awake, Oriented x3 - Psychiatric Exam Psychiatric exam: Normal Affect, Normal Mood Assessment and Plan - Assessment and Plan (Free Text) Assessment: 62 y/o male POD#3 Left 4th digit amputation Plan: Patient seen and evaluated at bedside Chart, labs and vitals reviewed- patient afebrile and absent leukocytosis at this time Plan discussed with Dr. Farley Wound cx left foot- Beta Hemolytic Strep Group B, Coagulase Negative Staphylococcus LE CT: gross distal left leg, ankle and foot cellulitis related to 4th digit soft tissues medially but without local significant jaqui changes at the 4th digit OR Wound Culture- Beta Hemolytic strep group B, Corneybacterium Patient to NWB to left with assistance device as needed- Keep dressing clean, dry and intact Continue IV abx per ID as per Dr. Horn recommendation- patient received PICC line and will be discharged home with Abx protocol for further treatment Podiatry Wound Care- 1/4 inch iodoform packing to the plantar wound, xeroform to the incision, and gauze, and kerlix Wound was dressed as mentioned above Patient is stable for discharge from Podiatry standpoint, patient will follow up with Dr. Farley in his office Podiatry will continue to follow patient while in house
[2018-02-03 09:08] VITALS: BP 124/57; PULSE 80; TEMP 98.1; O2SAT 96
--- NOTE | 2018-02-03 10:54 | NM ---
Date of service: 01/30/2018 PROCEDURE: Ceretec labeled white blood cell study. HISTORY: r/o OM left foot COMPARISON: 01/18/2014. Ceretec labeled white blood cell study lower extremities 12/28/2017 CT left foot. 12/27/2017 radiographs left foot. TECHNIQUE: 20.1 mCi technetium 99 M Ceretec labeled white blood cells administered intravenously. FINDINGS: Extensive uptake in the left ankle and left foot. This portion of the left lower extremity is edematous. The findings are progressive compared to the prior study. IMPRESSION: Findings consistent with severe left ankle and foot cellulitis without objective evidence for acute osteomyelitis.
--- NOTE | 2018-02-03 15:12 | CP.PCM.PN ---
Subjective - Date & Time of Evaluation Date of Evaluation: 02/03/18 Time of Evaluation: 15:12 Objective - Vital Signs/Intake and Output Vital Signs (last 24 hours): Temp Pulse Resp BP Pulse Ox 98.1 F 80 20 124/57 L 96 02/03/18 09:06 02/03/18 09:06 02/03/18 09:06 02/03/18 09:06 02/03/18 09:06 Intake and Output: 02/03/18 02/03/18 06:59 18:59 Intake Total 350 Balance 350 - Medications Medications: Current Medications Acetaminophen (Tylenol 325mg Tab) 650 mg PO Q6 PRN PRN Reason: Pain, Mild (1-3) Famotidine (Pepcid) 20 mg PO DAILY [facility] Last Admin: 02/03/18 09:23 Dose: 20 mg Fluticasone/Vilanterol (Breo Ellipta 100-25 Mcg Inh) 1 puff INH RQ24 [facility] Heparin Sodium (Porcine) (Heparin) 5,000 units SC Q8 [facility] Last Admin: 01/30/18 14:15 Dose: 5,000 units Hydromorphone HCl (Dilaudid) 0.5 mg IVP Q15M PRN PRN Reason: Pain, moderate (4-7) Ceftaroline Fosamil 600 mg/ (Sodium Chloride) 100 mls @ 100 mls/hr IVPB Q12H [facility]; Protocol Last Admin: 02/03/18 05:10 Dose: 100 mls/hr Loratadine (Claritin) 10 mg PO DAILY [facility] Last Admin: 02/03/18 09:23 Dose: 10 mg Montelukast Sodium (Singulair) 10 mg PO HS [facility] Last Admin: 02/02/18 21:34 Dose: 10 mg - Labs Labs: 02/03/18 07:21 02/03/18 07:21 PT 13.4 SECONDS (9.7-12.2) H 01/31/18 11:31 INR 1.2 01/31/18 11:31 APTT 29 SECONDS (21-34) 01/31/18 11:31 Assessment and Plan - Assessment and Plan (Free Text) Assessment: FOLLOW UP WITH DR STORY IN HIS OFFICE 1-2 WEEK ---CALL FOR APPOINTMENT FOLLOW UP WITH DR CARDONA AT OFFICE -----CALL FOR APPOINTMENT FOLLOW UP WITH DR JAIN IN HIS OFFICE ----CALL FOR APPOINTMENT ADDRESS YOUR BLOOD WORK RESULT AT YOUR VISIT CONTINUE HOME MEDICATION TEFLARO 600 MG IVPB Q12H FOR 6 WEEKS\ Podiatry Wound Care- 1/4 inch iodoform packing to the plantar wound, xeroform to the incision, and gauze, and kerlix ACTIVITY TOLERATED CALL DR JAIN OR DR STORY OR GO TO THE EMERGENCY ROOM IF SYMPTOM RETURN OR WORSENING
== END 2018-02-03 16:00 | disposition home or self-care (01) | DRG 504 ==
LOC: C.ER 14:15 → C.6T 16:07
PROVIDERS: ADMIT Internal Medicine; ATTEND Internal Medicine
PROC: 0Y6W0Z0 Detachment at Left 4th Toe, Complete, Open Approach (ICD-10-PCS; principal; 2018-01-31 12:30)
PROC: 02HV33Z Insertion of Infusion Device into Superior Vena Cava, Percutaneous Approach (ICD-10-PCS; 2018-02-01)
DX: M86.172 Other acute osteomyelitis, left ankle and foot (principal); Z68.41 Body mass index [BMI] 40.0-44.9, adult; L03.116 Cellulitis of left lower limb; L02.612 Cutaneous abscess of left foot; I96 Gangrene, not elsewhere classified; Z87.820 Personal history of traumatic brain injury; Z87.891 Personal history of nicotine dependence; G47.33 Obstructive sleep apnea (adult) (pediatric); I73.9 Peripheral vascular disease, unspecified; J32.9 Chronic sinusitis, unspecified; J45.909 Unspecified asthma, uncomplicated; L97.529 Non-pressure chronic ulcer of other part of left foot with unspecified severity; M14.60 Charcot's joint, unspecified site

== ENCOUNTER 2018-03-29 09:14 | Outpatient (CLI) | payer OTHER | END 2018-03-29 09:15 | disposition home or self-care (01) | LOC: C.LAB 09:14 | DX: G60.0 Hereditary motor and sensory neuropathy (principal); L97.529 Non-pressure chronic ulcer of other part of left foot with unspecified severity; R73.09 Other abnormal glucose ==